=== PATIENT | male | born 1940 | race Caucasian/White ===

== ENCOUNTER 2017-10-09 09:51 | Inpatient (IN) | payer MEDICARE, OTHER, BC ==
[~2017-10-09] VITALS: Ht 175.3 cm; Wt 78.0 kg
[~2017-10-09 09:51] MED LIST: ACET-812 PO; ASPI81TA52 PO; BACL10TA2; CARV3.122 PO; CLOP75TA33 PO; ESOM40CA54 PO; FAMO40TA7 PO; GABA100C PO; ISOS30TA6 PO; NITR0.4T SL; PRAV20TA4 PO; RANO500T3 PO; VALS40TA2 PO; flomax PO
[2017-10-09] MEDS ORDERED: nitroGLYCERIN 1gm ointment UD TP ONE (10:00)
[2017-10-09 10:07] LABS: BASOPHILS % (AUTO) 0.3 % (0-1); EOSINOPHILS # (AUTO) 0.3 X10'3 (0-0.9); EOSINOPHILS % (AUTO) 5.4 % (0-6); HEMOGLOBIN 12.7 g/dl (14.0-17.9); LYMPHOCYTES # (AUTO) 1.4 X10'3 (1.1-4.8); LYMPHOCYTES % (AUTO) 25.4 % (21-51); MEAN CORPUSCULAR HGB CONC 35.4 % (33.0-36.5); MEAN CORPUSCULAR VOLUME 101.9 FL (78-98); MONOCYTES # (AUTO) 0.5 X10'3 (0-0.9); MONOCYTES % (AUTO) 9.5 % (2-12); NEUTROPHILS # (AUTO) 3.2 X10'3 (1.8-7.7); NEUTROPHILS % (AUTO) 59.4 % (42-75); PLATELET COUNT 264 X10'3 (140-440); RED BLOOD COUNT 3.53 X10'6 (4.70-6.10); RED CELL DISTRIBUTION WIDTH 12.6 % (11.5-14.5); WHITE BLOOD COUNT 5.3 X10'3 (4.5-11.0)
[2017-10-09] MEDS ORDERED: ARGI500C9 PO (10:12)
[2017-10-09] MEDS ORDERED: BACL10TA PO (10:12)
[2017-10-09] MEDS ORDERED: VITA150T PO (10:12)
[2017-10-09] MEDS ORDERED: VALS80TA2 PO (10:12)
[2017-10-09] MEDS ORDERED: VITC500T PO (10:12)
[2017-10-09] MEDS ORDERED: FERR-119 PO (10:12)
[2017-10-09] MEDS ORDERED: METO100T7 PO (10:12)
[2017-10-09 10:18] LABS: PARTIAL THROMBOPLASTIN TIME 26 SECONDS (22-32); PROTHROMBIN TIME 10.4 SECONDS (9.0-12.0)
[2017-10-09 10:32] LABS: ALANINE AMINOTRANSFERASE 21 U/L (12-78); ALBUMIN 3.7 G/DL (3.4-5.0); ALBUMIN/GLOBULIN RATIO 0.9 (1.1-1.5); ALKALINE PHOSPHATASE 52 IU/L (46-116); ANION GAP 8 (8-16); ASPARTATE AMINO TRANSFERASE 16 U/L (10-37); BILIRUBIN,TOTAL 0.7 MG/DL (0.1-1.0); BLOOD UREA NITROGEN 22 MG/DL (7-18); BUN/CREATININE RATIO 16.1 (5.4-32.0); CALCIUM 9.2 MG/DL (8.5-10.1); CHLORIDE 107 MMOL/L (99-107); CREATININE 1.37 MG/DL (0.60-1.10); GLUCOSE 104 MG/DL (70-104); MAGNESIUM 2.1 MG/DL (1.5-2.4); POTASSIUM 4.3 MMOL/L (3.5-5.1); SODIUM 142 MMOL/L (135-145); TOTAL PROTEIN 7.6 G/DL (6.4-8.2); eGFR 50 ML/MIN
[2017-10-09] MEDS ORDERED: enoxaparin 100mg/ml syringe SUBCUT ONE ×2 (11:20→12:45)
[2017-10-09] MEDS ORDERED: magnesium 4gm in 100ml NS 100 ML IV PRN (11:35)
[2017-10-09] MEDS ORDERED: magnesium Cl slow-release 64mg tablet PO PRN (11:35)
[2017-10-09] MEDS ORDERED: potassium Cl 20 mEq SR tablet PO PRN ×2 (11:35)
[2017-10-09] MEDS ORDERED: acetaminophen 325mg tablet PO PRN (11:35)
[2017-10-09] MEDS ORDERED: ondansetron/PF 4mg/2ml inj IV PRN (11:35)
[2017-10-09] MEDS ORDERED: MORPHINE 2MG in 2ml NS syringe IV PRN (11:35)
[2017-10-09] MEDS ORDERED: magnesium hydroxide 30ml (MOM) UD suspension PO PRN (11:35)
[2017-10-09] MEDS ORDERED: magnesium 2GM in 50ml NS 50 ML IV PRN (11:35)
[2017-10-09] MEDS ORDERED: mag hydrox/Alum hydrox/simeth 30ml oral suspension PO PRN (11:35)
[2017-10-09] MEDS ORDERED: potassium Cl 40MEQ/NS 500ml 500 ML IV PRN ×2 (11:35)
[2017-10-09] MEDS: famotidine 20mg tablet PO SCH ×2 (12:47→21:45)
[2017-10-09] MEDS ORDERED: isosorbide mononitrate 30mg tab.SR.24H PO SCH (13:20)
[2017-10-09] MEDS: HYDROcodone/acetaminophen 5mg/325mg tablet PO PRN ×2 (14:43→21:19)
[2017-10-09] MEDS ORDERED: nitroGLYCERIN 1gm ointment UD TP SCH (16:00)
[2017-10-09 19:00] VITALS: BP 102/58
[2017-10-09] MEDS: tamsulosin 0.4mg capsule PO SCH (21:19)
[2017-10-09] MEDS: ranolazine 500mg SR tablet (Q12H) PO SCH (21:20)
[2017-10-09] MEDS: enoxaparin 80mg/0.8ml syringe SUBCUT SCH (21:22)
[2017-10-09] MEDS: baclofen 10mg tablet PO SCH (21:23)
[2017-10-09 23:00] VITALS: BP 128/75
[2017-10-09 23:45] VITALS: BP 175/91
[2017-10-09] MEDS ORDERED: nitroGLYCERIN 0.4mg SUBLingual tab SL ONE (23:53)
[2017-10-09] MEDS ORDERED: nitroGLYCERIN 0.4mg SUBLingual tab SL PRN (23:55)
[2017-10-10] VITALS (8 sets, daily range): BP systolic 115–154; BP diastolic 73–87
[2017-10-10 05:55] LABS: BASOPHILS % (AUTO) 0.4 % (0-1); EOSINOPHILS # (AUTO) 0.3 X10'3 (0-0.9); EOSINOPHILS % (AUTO) 5.4 % (0-6); HEMOGLOBIN 11.2 g/dl (14.0-17.9); LYMPHOCYTES # (AUTO) 1.4 X10'3 (1.1-4.8); LYMPHOCYTES % (AUTO) 27.4 % (21-51); MEAN CORPUSCULAR HEMOGLOBIN 35.9 PG (27.0-31.0); MEAN CORPUSCULAR VOLUME 102.6 FL (78-98); MEAN PLATELET VOLUME 7.8 FL (7.4-10.4); MONOCYTES # (AUTO) 0.5 X10'3 (0-0.9); MONOCYTES % (AUTO) 9.8 % (2-12); NEUTROPHILS # (AUTO) 2.9 X10'3 (1.8-7.7); PLATELET COUNT 228 X10'3 (140-440); RED BLOOD COUNT 3.12 X10'6 (4.70-6.10); RED CELL DISTRIBUTION WIDTH 12.4 % (11.5-14.5); WHITE BLOOD COUNT 5.1 X10'3 (4.5-11.0)
[2017-10-10 06:04] LABS: ALBUMIN 3.1 G/DL (3.4-5.0); ANION GAP 7 (8-16); BLOOD UREA NITROGEN 25 MG/DL (7-18); BUN/CREATININE RATIO 20.8 (5.4-32.0); CALCIUM 8.5 MG/DL (8.5-10.1); CHLORIDE 109 MMOL/L (99-107); GLUCOSE 93 MG/DL (70-104); POTASSIUM 4.6 MMOL/L (3.5-5.1); SODIUM 144 MMOL/L (135-145); TOTAL CARBON DIOXIDE 28.2 MMOL/L (24-32); eGFR 59 ML/MIN
[2017-10-10] MEDS: K and/or MAG REPLACEMENT MC SCH (08:00)
[2017-10-10] MEDS: valsartan 80mg tablet PO SCH (08:00)
[2017-10-10] MEDS: vitamin B comp w/Vit. C tab 1 TAB TABLET PO SCH (08:00)
[2017-10-10] MEDS: aspirin 325mg tablet PO SCH (09:29)
[2017-10-10] MEDS: tamsulosin 0.4mg capsule PO SCH ×2 (09:29→20:35)
[2017-10-10] MEDS: ascorbic acid 500mg tablet PO SCH (09:29)
[2017-10-10] MEDS: famotidine 20mg tablet PO SCH ×2 (09:30→20:35)
[2017-10-10] MEDS: baclofen 10mg tablet PO SCH ×2 (09:30→20:35)
[2017-10-10] MEDS: isosorbide mononitrate 30mg tab.SR.24H PO SCH (09:30)
[2017-10-10] MEDS: ranolazine 500mg SR tablet (Q12H) PO SCH ×2 (09:30→20:35)
[2017-10-10] MEDS: metoprolol succinate 25mg (24-HOUR) SR. Tablet PO SCH (09:32)
[2017-10-10] MEDS: enoxaparin 80mg/0.8ml syringe SUBCUT SCH ×2 (09:32→20:38)
[2017-10-10] MEDS: ferrous sulfate 325mg tablet PO SCH (09:32)
[2017-10-10] MEDS: HYDROcodone/acetaminophen 5mg/325mg tablet PO PRN ×2 (11:46→22:52)
[2017-10-10] MEDS ORDERED: morphine 4 MG/ML inj SYRINge IV PRN (19:56)
[2017-10-11 03:00] VITALS: BP 160/77
[2017-10-11 06:00] VITALS: BP 142/73
[2017-10-11 06:08] LABS: BASOPHILS % (AUTO) 0.6 % (0-1); EOSINOPHILS # (AUTO) 0.2 X10'3 (0-0.9); HEMOGLOBIN 12.4 g/dl (14.0-17.9); LYMPHOCYTES # (AUTO) 1.2 X10'3 (1.1-4.8); LYMPHOCYTES % (AUTO) 21.1 % (21-51); MEAN CORPUSCULAR HEMOGLOBIN 36.1 PG (27.0-31.0); MEAN CORPUSCULAR HGB CONC 35.4 % (33.0-36.5); MEAN CORPUSCULAR VOLUME 101.9 FL (78-98); MEAN PLATELET VOLUME 7.6 FL (7.4-10.4); MONOCYTES # (AUTO) 0.5 X10'3 (0-0.9); MONOCYTES % (AUTO) 8.7 % (2-12); NEUTROPHILS # (AUTO) 3.6 X10'3 (1.8-7.7); NEUTROPHILS % (AUTO) 65.6 % (42-75); PLATELET COUNT 251 X10'3 (140-440); RED BLOOD COUNT 3.43 X10'6 (4.70-6.10); RED CELL DISTRIBUTION WIDTH 12.5 % (11.5-14.5); WHITE BLOOD COUNT 5.5 X10'3 (4.5-11.0)
[2017-10-11 06:23] LABS: ALBUMIN 3.4 G/DL (3.4-5.0); ANION GAP 6 (8-16); BLOOD UREA NITROGEN 19 MG/DL (7-18); BUN/CREATININE RATIO 15.6 (5.4-32.0); CALCIUM 8.8 MG/DL (8.5-10.1); CHLORIDE 107 MMOL/L (99-107); CREATININE 1.22 MG/DL (0.60-1.10); GLUCOSE 95 MG/DL (70-104); POTASSIUM 5.1 MMOL/L (3.5-5.1); SODIUM 141 MMOL/L (135-145); TOTAL CARBON DIOXIDE 27.6 MMOL/L (24-32); eGFR 58 ML/MIN
[2017-10-11] MEDS: K and/or MAG REPLACEMENT MC SCH (08:00)
[2017-10-11] MEDS: ferrous sulfate 325mg tablet PO SCH (08:07)
[2017-10-11] MEDS: aspirin 325mg tablet PO SCH (08:08)
[2017-10-11] MEDS: baclofen 10mg tablet PO SCH (08:08)
[2017-10-11] MEDS: isosorbide mononitrate 30mg tab.SR.24H PO SCH (08:08)
[2017-10-11] MEDS: ranolazine 500mg SR tablet (Q12H) PO SCH (08:08)
[2017-10-11] MEDS: ascorbic acid 500mg tablet PO SCH (08:09)
[2017-10-11] MEDS: tamsulosin 0.4mg capsule PO SCH (08:09)
[2017-10-11] MEDS: metoprolol succinate 25mg (24-HOUR) SR. Tablet PO SCH (08:09)
[2017-10-11] MEDS: famotidine 20mg tablet PO SCH (08:09)
[2017-10-11] MEDS: valsartan 80mg tablet PO SCH (08:10)
[2017-10-11] MEDS: enoxaparin 80mg/0.8ml syringe SUBCUT SCH (08:10)
[2017-10-11] MEDS: vitamin B comp w/Vit. C tab 1 TAB TABLET PO SCH (08:10)
[2017-10-11 11:00] VITALS: BP 110/68
[2017-10-11] MEDS ORDERED: ISOS30TA6 PO (13:21)
== END 2017-10-11 15:50 | disposition home or self-care (01) | DRG 303 ==
LOC: ER 09:51 → ED HOLD 11:33 → EDBEDREQ 18:10 → PCU 3S 19:05
PROVIDERS: ADMIT Internal Medicine; ATTEND Internal Medicine
DX: I25.118 Atherosclerotic heart disease of native coronary artery with other forms of angina pectoris (principal); I11.0 Hypertensive heart disease with heart failure; I50.22 Chronic systolic (congestive) heart failure; J44.9 Chronic obstructive pulmonary disease, unspecified; D50.9 Iron deficiency anemia, unspecified; I73.9 Peripheral vascular disease, unspecified; N40.0 Benign prostatic hyperplasia without lower urinary tract symptoms; E78.5 Hyperlipidemia, unspecified; I25.2 Old myocardial infarction; Z95.1 Presence of aortocoronary bypass graft; Z88.2 Allergy status to sulfonamides; Z88.8 Allergy status to other drugs, medicaments and biological substances; Z79.899 Other long term (current) drug therapy; Z86.73 Personal history of transient ischemic attack (TIA), and cerebral infarction without residual deficits; Z87.891 Personal history of nicotine dependence
CPT/HCPCS: 36415; 71045; 80048; 80053; 83735; 83880; 84484; 85025; 85610; 85730; 87070; 93005; 93306; 99285; J1650; J2270; J2274; J2405

== ENCOUNTER 2017-12-09 10:11 | Inpatient (IN) | payer MEDICARE, BC, OTHER ==
[~2017-12-09] VITALS: Ht 175.3 cm; Wt 79.5 kg
[~2017-12-09 10:11] MED LIST changes: -ACET-812 PO; +ARGI500C9 PO; -ASPI81TA52 PO; +BACL10TA PO; -BACL10TA2; -CARV3.122 PO; -CLOP75TA33 PO; -ESOM40CA54 PO; +FERR-119 PO; -GABA100C PO; +METO100T7 PO; -PRAV20TA4 PO; -VALS40TA2 PO; +VALS80TA2 PO; +VITA150T PO; +VITC500T PO
[2017-12-09] MEDS ORDERED: aspirin 81mg tab.chew PO ONE (10:50)
[2017-12-09 10:55] LABS: BASOPHILS % (AUTO) 0.3 % (0-1); EOSINOPHILS # (AUTO) 0.2 X10'3 (0-0.9); HEMATOCRIT 35.9 % (42.0-52.0); HEMOGLOBIN 12.4 g/dl (14.0-17.9); LYMPHOCYTES # (AUTO) 0.8 X10'3 (1.1-4.8); LYMPHOCYTES % (AUTO) 10.9 % (21-51); MEAN CORPUSCULAR HEMOGLOBIN 36.2 PG (27.0-31.0); MEAN CORPUSCULAR HGB CONC 34.5 % (33.0-36.5); MEAN PLATELET VOLUME 7.5 FL (7.4-10.4); MONOCYTES # (AUTO) 0.5 X10'3 (0-0.9); MONOCYTES % (AUTO) 6.2 % (2-12); NEUTROPHILS # (AUTO) 6.2 X10'3 (1.8-7.7); NEUTROPHILS % (AUTO) 79.6 % (42-75); PLATELET COUNT 199 X10'3 (140-440); RED BLOOD COUNT 3.42 X10'6 (4.70-6.10); RED CELL DISTRIBUTION WIDTH 13.2 % (11.5-14.5); WHITE BLOOD COUNT 7.7 X10'3 (4.5-11.0)
[2017-12-09 11:05] LABS: PARTIAL THROMBOPLASTIN TIME 24 SECONDS (22-32); PROTHROMBIN TIME 10.7 SECONDS (9.0-12.0)
[2017-12-09] MEDS ORDERED: CHOL100046 PO (11:09)
[2017-12-09] MEDS ORDERED: MAGN400C PO (11:09)
[2017-12-09] MEDS ORDERED: [UNRECOGNIZED DRUG - CODE] PO (11:09)
[2017-12-09] MEDS ORDERED: EVOL140S SQ (11:09)
[2017-12-09 11:10] LABS: ALANINE AMINOTRANSFERASE 15 U/L (12-78); ALBUMIN 3.5 G/DL (3.4-5.0); ALBUMIN/GLOBULIN RATIO 1.1 (1.1-1.5); ALKALINE PHOSPHATASE 46 IU/L (46-116); ANION GAP 7 (8-16); ASPARTATE AMINO TRANSFERASE 12 U/L (10-37); BILIRUBIN,TOTAL 1.2 MG/DL (0.1-1.0); BLOOD UREA NITROGEN 19 MG/DL (7-18); BUN/CREATININE RATIO 15.7 (5.4-32.0); CALCIUM 8.5 MG/DL (8.5-10.1); CHLORIDE 105 MMOL/L (99-107); CREATININE 1.21 MG/DL (0.60-1.10); GLUCOSE 107 MG/DL (70-104); POTASSIUM 4.2 MMOL/L (3.5-5.1); SODIUM 140 MMOL/L (135-145); TOTAL CARBON DIOXIDE 27.7 MMOL/L (24-32); TOTAL PROTEIN 6.8 G/DL (6.4-8.2); eGFR 58 ML/MIN
[2017-12-09] MEDS ORDERED: nitroGLYCERIN 0.4mg SUBLingual tab SL PRN ×2 (12:45→13:05)
[2017-12-09] MEDS ORDERED: magnesium hydroxide 30ml (MOM) UD suspension PO PRN (13:00)
[2017-12-09] MEDS ORDERED: thiamine inj. 100 MG in normal saline 100ml IV soln 100 ML IV ONE (13:00)
[2017-12-09] MEDS ORDERED: LORazepam 1 MG tablet PO PRN (13:00)
[2017-12-09] MEDS ORDERED: acetaminophen 325mg tablet PO PRN (13:00)
[2017-12-09] MEDS ORDERED: ondansetron/PF 4mg/2ml inj IV PRN (13:00)
[2017-12-09] MEDS ORDERED: mag hydrox/Alum hydrox/simeth 30ml oral suspension PO PRN (13:00)
[2017-12-09 13:05] LABS: CLARITY,URINE SLIGHTLY CLOUDY (Clear); COLOR,URINE AMBER (Yellow); GLUCOSE, URINE NEGATIVE (Neg); KETONES,URINE TRACE mg/dl (Neg); LEUKOCYTE ESTERASE ,URINE NEGATIVE (Neg); NITRITES, URINE NEGATIVE (Neg); OCCULT BLOOD,URINE NEGATIVE (Neg); PH,URINE 6.5 (4.8-8.0); PROTEIN,URINE 30 mg/dl (Neg)
[2017-12-09] MEDS ORDERED: regadenoson 0.4mg/5ml syringe IV ONE (13:05)
[2017-12-09] MEDS ORDERED: metoprolol tartrate 1mg/ml inj IV PRN (13:05)
[2017-12-09] MEDS ORDERED: CAFFEINE CITRATE 60 MG/3 ML injection vial IV PRN (13:05)
[2017-12-09 13:18] LABS: UA COLLECTION TYPE URINAL
[2017-12-09 13:28] LABS: WBC,URINE 0-4 /HPF (0-4)
[2017-12-09 13:29] LABS: BACTERIA,URINE NONE SEEN /HPF (Neg); HYALINE CASTS 0-3 /LPF (NEGATIVE); MUCUS STRANDS MODERATE /LPF (Neg); RBC,URINE 0-2 /HPF (0-2); SQUAMOUS EPITHELIAL CELL,UR FEW /LPF (FEW)
[2017-12-09] MEDS: baclofen 10mg tablet PO SCH (19:41)
[2017-12-09] MEDS: tamsulosin 0.4mg capsule PO SCH (19:41)
[2017-12-09] MEDS: ranolazine 500mg SR tablet (Q12H) PO SCH (19:42)
[2017-12-09 20:00] VITALS: BP 90/49
[2017-12-10] VITALS (13 sets, daily range): BP systolic 113–145; BP diastolic 64–88
[2017-12-10] MEDS: nitroGLYCERIN 0.4mg SUBLingual tab SL SCH ×2 (03:27→03:35)
[2017-12-10 05:43] LABS: BASOPHILS % (AUTO) 0.2 % (0-1); EOSINOPHILS # (AUTO) 0.2 X10'3 (0-0.9); HEMATOCRIT 32.1 % (42.0-52.0); HEMOGLOBIN 11.3 g/dl (14.0-17.9); LYMPHOCYTES % (AUTO) 17.3 % (21-51); MEAN CORPUSCULAR HEMOGLOBIN 36.4 PG (27.0-31.0); MEAN CORPUSCULAR HGB CONC 35.2 % (33.0-36.5); MEAN CORPUSCULAR VOLUME 103.5 FL (78-98); MEAN PLATELET VOLUME 8.1 FL (7.4-10.4); MONOCYTES # (AUTO) 0.6 X10'3 (0-0.9); MONOCYTES % (AUTO) 9.4 % (2-12); NEUTROPHILS # (AUTO) 4.1 X10'3 (1.8-7.7); NEUTROPHILS % (AUTO) 69.1 % (42-75); PLATELET COUNT 183 X10'3 (140-440); RED CELL DISTRIBUTION WIDTH 13.3 % (11.5-14.5); WHITE BLOOD COUNT 5.9 X10'3 (4.5-11.0)
[2017-12-10 05:56] LABS: PROTHROMBIN TIME 10.7 SECONDS (9.0-12.0)
[2017-12-10 06:09] LABS: ALANINE AMINOTRANSFERASE 15 U/L (12-78); ALBUMIN/GLOBULIN RATIO 1.1 (1.1-1.5); ALKALINE PHOSPHATASE 45 IU/L (46-116); AMYLASE 36 U/L (25-115); ANION GAP 7 (8-16); ASPARTATE AMINO TRANSFERASE 10 U/L (10-37); BILIRUBIN,TOTAL 0.9 MG/DL (0.1-1.0); BLOOD UREA NITROGEN 22 MG/DL (7-18); BUN/CREATININE RATIO 17.5 (5.4-32.0); CALCIUM 8.5 MG/DL (8.5-10.1); CHLORIDE 107 MMOL/L (99-107); CREATININE 1.26 MG/DL (0.60-1.10); GLUCOSE 102 MG/DL (70-104); LIPASE 168 U/L (73-393); MAGNESIUM 1.9 MG/DL (1.5-2.4); PHOSPHORUS 3.1 MG/DL (2.3-4.5); POTASSIUM 4.3 MMOL/L (3.5-5.1); SODIUM 141 MMOL/L (135-145); TOTAL PROTEIN 5.8 G/DL (6.4-8.2); eGFR 55 ML/MIN
[2017-12-10] MEDS ORDERED: metoprolol succinate 25mg (24-HOUR) SR. Tablet PO SCH (08:00)
[2017-12-10] MEDS ORDERED: magnesium oxide 400mg tablet PO SCH (08:00)
[2017-12-10] MEDS ORDERED: vitamin B comp w/Vit. C tab 1 TAB TABLET PO SCH (08:00)
[2017-12-10] MEDS ORDERED: famotidine 20mg tablet PO SCH (08:00)
[2017-12-10] MEDS ORDERED: isosorbide mononitrate 30mg tab.SR.24H PO SCH (08:00)
[2017-12-10] MEDS ORDERED: folic acid inj. 2 MG, thiamine inj. 100 MG, MVI, adult No.4 with vit. K 10 ML in dextro... IV SCH ×4 (08:00)
[2017-12-10] MEDS ORDERED: valsartan 80mg tablet PO SCH (08:00)
[2017-12-10] MEDS ORDERED: VITAMIN A 10000 UNIT PO SCH (08:00)
[2017-12-10] MEDS ORDERED: ferrous sulfate 325mg tablet PO SCH (08:00)
[2017-12-10] MEDS ORDERED: vitamin D (cholecalciferol) 1,000 unit tablet PO SCH (08:00)
[2017-12-10] MEDS ORDERED: ascorbic acid 500mg tablet PO SCH (08:00)
[2017-12-10] MEDS ORDERED: enoxaparin 40mg/0.4ml syringe SQ SCH (08:00)
[2017-12-10] MEDS: baclofen 10mg tablet PO SCH (08:15)
[2017-12-10] MEDS: tamsulosin 0.4mg capsule PO SCH (08:15)
[2017-12-10] MEDS: ranolazine 500mg SR tablet (Q12H) PO SCH (08:15)
[2017-12-10] MEDS ORDERED: regadenoson 0.4mg/5ml syringe IV ONE (09:01)
[2017-12-10] MEDS ORDERED: CAFFEINE CITRATE 60 MG/3 ML injection vial IV ONE (09:01)
[2017-12-10] MEDS ORDERED: ADV50100 (10:45)
[2017-12-10] MEDS ORDERED: thiamine 100mg tablet PO SCH (11:44)
[2017-12-10] MEDS ORDERED: multivitamins, therapeutics tablet PO SCH (11:44)
[2017-12-10] MEDS ORDERED: folic acid 1mg tablet PO SCH (11:44)
[2017-12-19] MEDS ORDERED: EVOLOCUMAB 140 MG SQ SCH (08:00)
== END 2017-12-10 16:30 | disposition home or self-care (01) | DRG 313 ==
LOC: ER 10:12 → ED HOLD 12:57 → SUR 3N 17:34
PROVIDERS: ADMIT Internal Medicine; ATTEND Internal Medicine
PROC: 4A02XM4 Measurement of Cardiac Total Activity, External Approach (ICD-10-PCS; principal; 2017-12-10)
PROC: 3E073KZ Introduction of Other Diagnostic Substance into Coronary Artery, Percutaneous Approach (ICD-10-PCS; 2017-12-10)
DX: R07.9 Chest pain, unspecified (principal); I24.9 Acute ischemic heart disease, unspecified; D64.9 Anemia, unspecified; I35.0 Nonrheumatic aortic (valve) stenosis; J44.9 Chronic obstructive pulmonary disease, unspecified; I25.10 Atherosclerotic heart disease of native coronary artery without angina pectoris; I12.9 Hypertensive chronic kidney disease with stage 1 through stage 4 chronic kidney disease, or unspecified chronic kidney disease; E78.5 Hyperlipidemia, unspecified; R00.1 Bradycardia, unspecified; N40.0 Benign prostatic hyperplasia without lower urinary tract symptoms; N18.9 Chronic kidney disease, unspecified; I73.9 Peripheral vascular disease, unspecified; Z88.2 Allergy status to sulfonamides; Z88.8 Allergy status to other drugs, medicaments and biological substances; Z91.041 Radiographic dye allergy status; I25.2 Old myocardial infarction; Z82.49 Family history of ischemic heart disease and other diseases of the circulatory system; Z86.73 Personal history of transient ischemic attack (TIA), and cerebral infarction without residual deficits; Z95.1 Presence of aortocoronary bypass graft; Z95.5 Presence of coronary angioplasty implant and graft; Z87.11 Personal history of peptic ulcer disease
CPT/HCPCS: 36415; 71045; 78451; 80053; 81001; 82150; 82948; 83690; 83735; 84100; 84439; 84443; 84484; 85025; 85610; 85730; 87070; 93005; 93017; 99285; A9500; J3411; J3490; J7030; J7060

== ENCOUNTER 2018-05-09 19:43 | Emergency (ER) | payer MEDICARE, BC, OTHER ==
[~2018-05-09] VITALS: Ht 175.3 cm; Wt 78.2 kg
[~2018-05-09 19:43] MED LIST changes: +ADV50100; -ARGI500C9 PO; +CHOL100046 PO; +EVOL140S SQ; +MAGN400C PO; +[UNRECOGNIZED DRUG - CODE] PO
[2018-05-09 20:33] LABS: BASOPHILS % (AUTO) 0.2 % (0-1); EOSINOPHILS # (AUTO) 0.3 X10'3 (0-0.9); EOSINOPHILS % (AUTO) 5.5 % (0-6); HEMATOCRIT 32.6 % (42.0-52.0); HEMOGLOBIN 11.1 g/dl (14.0-17.9); LYMPHOCYTES # (AUTO) 0.9 X10'3 (1.1-4.8); LYMPHOCYTES % (AUTO) 18.9 % (21-51); MEAN CORPUSCULAR HEMOGLOBIN 35.2 PG (27.0-31.0); MEAN CORPUSCULAR VOLUME 103.3 FL (78-98); MEAN PLATELET VOLUME 7.7 FL (7.4-10.4); MONOCYTES # (AUTO) 0.4 X10'3 (0-0.9); MONOCYTES % (AUTO) 8.1 % (2-12); NEUTROPHILS # (AUTO) 3.3 X10'3 (1.8-7.7); NEUTROPHILS % (AUTO) 67.3 % (42-75); PLATELET COUNT 241 X10'3 (140-440); RED BLOOD COUNT 3.16 X10'6 (4.70-6.10); RED CELL DISTRIBUTION WIDTH 12.5 % (11.5-14.5); WHITE BLOOD COUNT 4.9 X10'3 (4.5-11.0)
[2018-05-09 20:47] LABS: PARTIAL THROMBOPLASTIN TIME 27 SECONDS (22-32); PROTHROMBIN TIME 10.2 SECONDS (9.0-12.0)
[2018-05-09 20:48] LABS: ALANINE AMINOTRANSFERASE 14 U/L (12-78); ALKALINE PHOSPHATASE 43 IU/L (46-116); ANION GAP 9 (8-16); ASPARTATE AMINO TRANSFERASE 12 U/L (10-37); BILIRUBIN,TOTAL 0.6 MG/DL (0.1-1.0); BLOOD UREA NITROGEN 13 MG/DL (7-18); BUN/CREATININE RATIO 12.9 (5.4-32.0); CALCIUM 7.9 MG/DL (8.5-10.1); CHLORIDE 108 MMOL/L (99-107); CREATININE 1.01 MG/DL (0.60-1.10); GLUCOSE 97 MG/DL (70-104); POTASSIUM 4.1 MMOL/L (3.5-5.1); SODIUM 142 MMOL/L (135-145); TOTAL CARBON DIOXIDE 25.5 MMOL/L (24-32); TOTAL PROTEIN 6.1 G/DL (6.4-8.2); eGFR 72 ML/MIN
[2018-05-09 21:43] VITALS: BP 126/67
== END 2018-05-09 21:47 | disposition home or self-care (01) ==
LOC: ER 19:44
DX: R53.1 Weakness (principal); R11.0 Nausea; I25.10 Atherosclerotic heart disease of native coronary artery without angina pectoris; I10 Essential (primary) hypertension; I25.2 Old myocardial infarction; J44.9 Chronic obstructive pulmonary disease, unspecified; Z86.73 Personal history of transient ischemic attack (TIA), and cerebral infarction without residual deficits; Z98.61 Coronary angioplasty status; Z95.1 Presence of aortocoronary bypass graft; Z98.890 Other specified postprocedural states; Z87.891 Personal history of nicotine dependence; Z88.2 Allergy status to sulfonamides; Z88.6 Allergy status to analgesic agent; Z88.8 Allergy status to other drugs, medicaments and biological substances; Z91.041 Radiographic dye allergy status; Z79.899 Other long term (current) drug therapy
CPT/HCPCS: 36415; 71045; 80053; 84484; 85025; 85610; 85730; 93005; 99285

== ENCOUNTER 2018-07-04 00:59 | Inpatient (IN) | payer MEDICARE, BC, OTHER ==
[~2018-07-04] VITALS: Ht 175.3 cm; Wt 79.5 kg
[2018-07-04 01:32] LABS: PARTIAL THROMBOPLASTIN TIME 28 SECONDS (22-32); PROTHROMBIN TIME 10.2 SECONDS (9.0-12.0)
[2018-07-04 01:35] LABS: ALANINE AMINOTRANSFERASE 15 U/L (12-78); ALBUMIN 3.7 G/DL (3.4-5.0); ALBUMIN/GLOBULIN RATIO 1.1 (1.1-1.5); ALKALINE PHOSPHATASE 61 IU/L (46-116); ANION GAP 11 (8-16); ASPARTATE AMINO TRANSFERASE 15 U/L (10-37); BILIRUBIN,TOTAL 0.9 MG/DL (0.1-1.0); BLOOD UREA NITROGEN 21 MG/DL (7-18); BUN/CREATININE RATIO 17.5 (5.4-32.0); CALCIUM 8.8 MG/DL (8.5-10.1); CHLORIDE 105 MMOL/L (99-107); GLUCOSE 121 MG/DL (70-104); POTASSIUM 4.1 MMOL/L (3.5-5.1); SODIUM 141 MMOL/L (135-145); TOTAL CARBON DIOXIDE 25.5 MMOL/L (24-32); eGFR 59 ML/MIN
[2018-07-04 01:38] LABS: BASOPHILS % (AUTO) 0.7 % (0-1); EOSINOPHILS # (AUTO) 0.2 X10'3 (0-0.9); EOSINOPHILS % (AUTO) 3.5 % (0-6); HEMATOCRIT 37.1 % (42.0-52.0); HEMOGLOBIN 12.8 g/dl (14.0-17.9); LYMPHOCYTES # (AUTO) 1.4 X10'3 (1.1-4.8); LYMPHOCYTES % (AUTO) 24.3 % (21-51); MEAN CORPUSCULAR HEMOGLOBIN 35.4 PG (27.0-31.0); MEAN CORPUSCULAR HGB CONC 34.4 % (33.0-36.5); MEAN CORPUSCULAR VOLUME 102.8 FL (78-98); MEAN PLATELET VOLUME 8.1 FL (7.4-10.4); MONOCYTES # (AUTO) 0.4 X10'3 (0-0.9); MONOCYTES % (AUTO) 6.7 % (2-12); NEUTROPHILS # (AUTO) 3.6 X10'3 (1.8-7.7); NEUTROPHILS % (AUTO) 64.8 % (42-75); PLATELET COUNT 252 X10'3 (140-440); RED BLOOD COUNT 3.61 X10'6 (4.70-6.10); RED CELL DISTRIBUTION WIDTH 13.2 % (11.5-14.5); WHITE BLOOD COUNT 5.6 X10'3 (4.5-11.0)
[2018-07-04] MEDS ORDERED: ondansetron/PF 4mg/2ml inj IV PRN (02:30)
[2018-07-04] MEDS ORDERED: mag hydrox/Alum hydrox/simeth 30ml oral suspension PO PRN (02:30)
[2018-07-04] MEDS ORDERED: magnesium hydroxide 30ml (MOM) UD suspension PO PRN (02:30)
[2018-07-04] MEDS ORDERED: baclofen 10mg tablet PO PRN (02:35)
[2018-07-04] MEDS: acetaminophen 325mg tablet PO PRN ×3 (02:52→19:39)
[2018-07-04] MEDS: ACAMPROSATE 333 MG PO SCH ×3 (08:00→17:19)
[2018-07-04] MEDS: metoprolol succinate 25mg (24-HOUR) SR. Tablet PO SCH ×2 (08:00→10:25)
[2018-07-04] MEDS ORDERED: acamprosate DR 333mg Tablet PO SCH (08:00)
[2018-07-04] MEDS ORDERED: ranolazine 500mg SR tablet (Q12H) PO SCH (08:00)
[2018-07-04 09:50] VITALS: BP 164/86
[2018-07-04] MEDS ORDERED: magnesium Cl slow-release 64mg tablet PO PRN (10:05)
[2018-07-04] MEDS ORDERED: potassium Cl 20 mEq SR tablet PO PRN ×2 (10:05)
[2018-07-04] MEDS ORDERED: magnesium 4gm in 100ml NS 100 ML IV PRN (10:05)
[2018-07-04] MEDS ORDERED: potassium Cl 40MEQ/NS 500ml 500 ML IV PRN ×2 (10:05)
[2018-07-04] MEDS ORDERED: aminophylline 250mg/10ml inj. IV PRN (10:10)
[2018-07-04] MEDS ORDERED: regadenoson 0.4mg/5ml syringe IV ONE (10:10)
[2018-07-04] MEDS ORDERED: nitroGLYCERIN 0.4mg SUBLingual tab SL PRN (10:10)
[2018-07-04] MEDS ORDERED: metoprolol tartrate 1mg/ml inj IV PRN (10:10)
[2018-07-04] MEDS: nitroGLYCERIN 0.4mg SUBLingual tab SL PRN ×4 (10:21→12:10)
[2018-07-04] MEDS: famotidine 20mg tablet PO SCH (10:25)
[2018-07-04] MEDS: ferrous sulfate 325mg tablet PO SCH (10:25)
[2018-07-04] MEDS: tamsulosin 0.4mg capsule PO SCH ×2 (10:26→19:38)
[2018-07-04] MEDS: folic acid/vitamin B complex w/vitamin C 0.8mg tablet PO SCH (10:26)
[2018-07-04] MEDS: vitamin D (cholecalciferol) 1,000 unit tablet PO SCH (10:28)
[2018-07-04] MEDS: heparin, porcine 5000 units/ml vial SQ SCH ×2 (10:28→19:39)
[2018-07-04] MEDS: losartan 50mg tablet PO SCH (10:29)
[2018-07-04] MEDS: ascorbic acid 500mg tablet PO SCH (10:29)
[2018-07-04] MEDS: isosorbide mononitrate 30mg tab.SR.24H PO SCH (10:30)
[2018-07-04] MEDS: magnesium oxide 400mg tablet PO SCH (10:56)
[2018-07-04 11:00] VITALS: BP 157/83
[2018-07-04] MEDS ORDERED: haloperidol 5mg tablet PO PRN (12:50)
[2018-07-04] MEDS ORDERED: haloperidol lactate 5mg/ml inj IM PRN (12:50)
[2018-07-04] MEDS ORDERED: dextrose 50%-water 50ml dispensing syringe IV PRN (12:50)
[2018-07-04] MEDS ORDERED: LORazepam 2 mg/ml vial IV PRN (12:50)
[2018-07-04] MEDS ORDERED: thiamine 100mg/ml 2ml inj. IV ONE (12:50)
[2018-07-04] MEDS ORDERED: HYDROcodone/acetaminophen 5mg/325mg tablet PO PRN (13:20)
[2018-07-04] MEDS ORDERED: HYDROcodone/acetaminophen 10/325mg tab PO PRN (13:20)
[2018-07-04] MEDS ORDERED: thiamine inj. 100 MG in normal saline 100ml IV soln 99 ML IV ONE (13:40)
[2018-07-04] MEDS ORDERED: METO25TA6 PO (14:13)
[2018-07-04 15:00] VITALS: BP 134/68
[2018-07-04] MEDS: nitroGLYCERIN 0.2mg/hour patch TD SCH (17:18)
[2018-07-04 19:00] VITALS: BP 133/76
[2018-07-04] MEDS: ranolazine 500mg SR tablet (Q12H) PO SCH (19:38)
[2018-07-04] MEDS: metoprolol tartrate 25mg tablet PO SCH (19:39)
[2018-07-04 23:00] VITALS: BP 118/68
[2018-07-05] VITALS (14 sets, daily range): BP systolic 125–164; BP diastolic 60–89
[2018-07-05 06:35] LABS: ALANINE AMINOTRANSFERASE 15 U/L (12-78); ALBUMIN 3.1 G/DL (3.4-5.0); ALBUMIN/GLOBULIN RATIO 1.1 (1.1-1.5); ALKALINE PHOSPHATASE 44 IU/L (46-116); ANION GAP 12 (8-16); ASPARTATE AMINO TRANSFERASE 19 U/L (10-37); BILIRUBIN,TOTAL 0.9 MG/DL (0.1-1.0); BLOOD UREA NITROGEN 15 MG/DL (7-18); BUN/CREATININE RATIO 15.3 (5.4-32.0); CALCIUM 8.7 MG/DL (8.5-10.1); CHLORIDE 105 MMOL/L (99-107); CREATININE 0.98 MG/DL (0.60-1.10); GLUCOSE 92 MG/DL (70-104); PHOSPHORUS 3.5 MG/DL (2.3-4.5); POTASSIUM 4.1 MMOL/L (3.5-5.1); SODIUM 140 MMOL/L (135-145); eGFR 74 ML/MIN
[2018-07-05 07:10] LABS: BASOPHILS % (AUTO) 0.3 % (0-1); EOSINOPHILS # (AUTO) 0.2 X10'3 (0-0.9); HEMOGLOBIN 11.8 g/dl (14.0-17.9); LYMPHOCYTES # (AUTO) 1.1 X10'3 (1.1-4.8); LYMPHOCYTES % (AUTO) 21.2 % (21-51); MEAN CORPUSCULAR HEMOGLOBIN 35.7 PG (27.0-31.0); MEAN CORPUSCULAR HGB CONC 34.7 % (33.0-36.5); MEAN PLATELET VOLUME 8.1 FL (7.4-10.4); MONOCYTES # (AUTO) 0.4 X10'3 (0-0.9); MONOCYTES % (AUTO) 8.5 % (2-12); NEUTROPHILS # (AUTO) 3.4 X10'3 (1.8-7.7); PLATELET COUNT 227 X10'3 (140-440); RED CELL DISTRIBUTION WIDTH 13.7 % (11.5-14.5); WHITE BLOOD COUNT 5.2 X10'3 (4.5-11.0)
[2018-07-05] MEDS: metoprolol tartrate 25mg tablet PO SCH (08:00)
[2018-07-05] MEDS ORDERED: multivitamins, therapeutics tablet PO SCH (08:00)
[2018-07-05] MEDS ORDERED: thiamine 100mg tablet PO SCH (08:00)
[2018-07-05] MEDS ORDERED: folic acid 1mg tablet PO SCH (08:00)
[2018-07-05] MEDS ORDERED: aminophylline inj. 10 ML IV ONE (08:52)
[2018-07-05] MEDS ORDERED: regadenoson 0.4mg/5ml syringe IV ONE ×2 (08:52→09:10)
[2018-07-05] MEDS: losartan 50mg tablet PO SCH (10:57)
[2018-07-05] MEDS: ferrous sulfate 325mg tablet PO SCH (10:57)
[2018-07-05] MEDS: tamsulosin 0.4mg capsule PO SCH (10:58)
[2018-07-05] MEDS: isosorbide mononitrate 30mg tab.SR.24H PO SCH (11:01)
[2018-07-05] MEDS: magnesium oxide 400mg tablet PO SCH (11:02)
[2018-07-05] MEDS: vitamin D (cholecalciferol) 1,000 unit tablet PO SCH (11:03)
[2018-07-05] MEDS: folic acid/vitamin B complex w/vitamin C 0.8mg tablet PO SCH (11:03)
[2018-07-05] MEDS: famotidine 20mg tablet PO SCH (11:04)
[2018-07-05] MEDS: ACAMPROSATE 333 MG PO SCH ×2 (11:05→13:49)
[2018-07-05] MEDS: ranolazine 500mg SR tablet (Q12H) PO SCH (11:06)
[2018-07-05] MEDS: ascorbic acid 500mg tablet PO SCH (11:07)
[2018-07-05] MEDS: nitroGLYCERIN 0.2mg/hour patch TD SCH (11:08)
[2018-07-05] MEDS: heparin, porcine 5000 units/ml vial SQ SCH (11:10)
[2018-07-05] MEDS ORDERED: THI100T PO (14:54)
[2018-07-05] MEDS ORDERED: MULT-1179 PO (14:54)
[2018-07-05] MEDS ORDERED: FOLI1TAB16 PO (14:54)
[2018-07-05] MEDS ORDERED: PANT40TA4 PO (14:58)
[2018-07-06] MEDS ORDERED: LORazepam 2 mg/ml vial IV PRN (12:50)
[2018-07-06] MEDS ORDERED: LORazepam 1 MG tablet PO PRN (12:50)
[2018-07-08] MEDS ORDERED: LORazepam 1 MG tablet PO PRN (12:50)
[2018-07-08] MEDS ORDERED: LORazepam 2 mg/ml vial IV PRN (12:50)
== END 2018-07-05 16:00 | disposition home or self-care (01) | DRG 392 ==
LOC: ER 01:00 → ED HOLD 02:28 → PCU 3S 09:53
PROVIDERS: ADMIT Internal Medicine; ATTEND Family Medicine
PROC: 4A02XM4 Measurement of Cardiac Total Activity, External Approach (ICD-10-PCS; principal; 2018-07-05)
PROC: 3E033HZ Introduction of Radioactive Substance into Peripheral Vein, Percutaneous Approach (ICD-10-PCS; 2018-07-05)
DX: K21.9 Gastro-esophageal reflux disease without esophagitis (principal); I10 Essential (primary) hypertension; J44.9 Chronic obstructive pulmonary disease, unspecified; I25.10 Atherosclerotic heart disease of native coronary artery without angina pectoris; K29.20 Alcoholic gastritis without bleeding; I35.0 Nonrheumatic aortic (valve) stenosis; N40.0 Benign prostatic hyperplasia without lower urinary tract symptoms; I25.2 Old myocardial infarction; Z95.1 Presence of aortocoronary bypass graft; Z79.899 Other long term (current) drug therapy; Z88.2 Allergy status to sulfonamides; Z88.8 Allergy status to other drugs, medicaments and biological substances; Z91.041 Radiographic dye allergy status; Z88.6 Allergy status to analgesic agent; Z87.891 Personal history of nicotine dependence; Z86.73 Personal history of transient ischemic attack (TIA), and cerebral infarction without residual deficits
CPT/HCPCS: 36415; 71045; 78452; 80053; 82948; 83735; 84100; 84484; 85025; 85610; 85730; 93005; 93017; 93306; 99285; A9500; G0378; J0280; J1644; J2405; J3411; J7030

== ENCOUNTER 2018-08-05 07:52 | Emergency (ER) | payer MEDICARE, BC, OTHER ==
[~2018-08-05] VITALS: Ht 175.3 cm; Wt 77.0 kg
[~2018-08-05 07:52] MED LIST changes: -FAMO40TA7 PO; +FOLI1TAB16 PO; -METO100T7 PO; +METO25TA6 PO; +MULT-1179 PO; +PANT40TA4 PO; +THI100T PO
[2018-08-05 08:37] LABS: BASOPHILS % (AUTO) 0.4 % (0-1); EOSINOPHILS # (AUTO) 0.5 X10'3 (0-0.9); EOSINOPHILS % (AUTO) 6.5 % (0-6); HEMATOCRIT 38.6 % (42.0-52.0); HEMOGLOBIN 12.9 g/dl (14.0-17.9); LYMPHOCYTES # (AUTO) 1.4 X10'3 (1.1-4.8); LYMPHOCYTES % (AUTO) 20.3 % (21-51); MEAN CORPUSCULAR HGB CONC 33.5 % (33.0-36.5); MEAN CORPUSCULAR VOLUME 101.5 FL (78-98); MEAN PLATELET VOLUME 7.5 FL (7.4-10.4); MONOCYTES # (AUTO) 0.5 X10'3 (0-0.9); MONOCYTES % (AUTO) 7.5 % (2-12); NEUTROPHILS # (AUTO) 4.5 X10'3 (1.8-7.7); NEUTROPHILS % (AUTO) 65.3 % (42-75); PLATELET COUNT 227 X10'3 (140-440); RED CELL DISTRIBUTION WIDTH 12.4 % (11.5-14.5); WHITE BLOOD COUNT 6.9 X10'3 (4.5-11.0)
[2018-08-05 08:48] LABS: PROTHROMBIN TIME 10.1 SECONDS (9.0-12.0)
[2018-08-05 08:53] LABS: ALANINE AMINOTRANSFERASE 16 U/L (12-78); ALBUMIN 3.5 G/DL (3.4-5.0); ALBUMIN/GLOBULIN RATIO 1.1 (1.1-1.5); ALKALINE PHOSPHATASE 53 IU/L (46-116); ANION GAP 11 (8-16); ASPARTATE AMINO TRANSFERASE 13 U/L (10-37); BILIRUBIN,TOTAL 0.8 MG/DL (0.1-1.0); BLOOD UREA NITROGEN 19 MG/DL (7-18); BUN/CREATININE RATIO 20.2 (5.4-32.0); CALCIUM 8.7 MG/DL (8.5-10.1); CHLORIDE 106 MMOL/L (99-107); CREATININE 0.94 MG/DL (0.60-1.10); GLUCOSE 95 MG/DL (70-104); POTASSIUM 3.7 MMOL/L (3.5-5.1); SODIUM 140 MMOL/L (135-145); TOTAL CARBON DIOXIDE 23.1 MMOL/L (24-32); TOTAL PROTEIN 6.7 G/DL (6.4-8.2); eGFR 78 ML/MIN
[2018-08-05] MEDS ORDERED: furosemide 10 MG/1 ML 10ml inj IV ONE (09:05)
[2018-08-05] MEDS ORDERED: furosemide 40mg/4ml inj IV ONE (09:10)
[2018-08-05 10:23] VITALS: BP 141/71
== END 2018-08-05 10:24 | disposition home or self-care (01) ==
LOC: ER 07:53
DX: I20.8 Other forms of angina pectoris (principal); I50.9 Heart failure, unspecified; I11.0 Hypertensive heart disease with heart failure; I25.2 Old myocardial infarction; J44.9 Chronic obstructive pulmonary disease, unspecified; R00.1 Bradycardia, unspecified; Z88.6 Allergy status to analgesic agent; Z88.2 Allergy status to sulfonamides; Z88.8 Allergy status to other drugs, medicaments and biological substances; Z79.899 Other long term (current) drug therapy; Z86.73 Personal history of transient ischemic attack (TIA), and cerebral infarction without residual deficits; Z86.718 Personal history of other venous thrombosis and embolism; Z87.19 Personal history of other diseases of the digestive system; Z98.890 Other specified postprocedural states; Z90.89 Acquired absence of other organs; Z98.61 Coronary angioplasty status; Z95.1 Presence of aortocoronary bypass graft
CPT/HCPCS: 36415; 71045; 80053; 83880; 84484; 85025; 85610; 93005; 96374; 99284; J1940

== ENCOUNTER 2018-10-31 01:33 | Inpatient (IN) | payer MEDICARE, BC, OTHER ==
[~2018-10-31] VITALS: Ht 170.2 cm; Wt 84.0 kg
[2018-10-31 02:00] LABS: BASOPHILS % (AUTO) 0.3 % (0-1); EOSINOPHILS # (AUTO) 0.4 X10'3 (0-0.9); EOSINOPHILS % (AUTO) 6.9 % (0-6); HEMATOCRIT 32.1 % (42.0-52.0); HEMOGLOBIN 11.2 g/dl (14.0-17.9); LYMPHOCYTES # (AUTO) 1.3 X10'3 (1.1-4.8); LYMPHOCYTES % (AUTO) 20.2 % (21-51); MEAN CORPUSCULAR HEMOGLOBIN 34.9 PG (27.0-31.0); MEAN CORPUSCULAR VOLUME 99.9 FL (78-98); MEAN PLATELET VOLUME 7.3 FL (7.4-10.4); MONOCYTES # (AUTO) 0.5 X10'3 (0-0.9); MONOCYTES % (AUTO) 7.6 % (2-12); NEUTROPHILS # (AUTO) 4.3 X10'3 (1.8-7.7); PLATELET COUNT 237 X10'3 (140-440); RED BLOOD COUNT 3.21 X10'6 (4.70-6.10); RED CELL DISTRIBUTION WIDTH 13.5 % (11.5-14.5); WHITE BLOOD COUNT 6.6 X10'3 (4.5-11.0)
[2018-10-31 02:12] LABS: ALANINE AMINOTRANSFERASE 14 U/L (12-78); ALBUMIN 3.6 G/DL (3.4-5.0); ALBUMIN/GLOBULIN RATIO 1.2 (1.1-1.5); ALKALINE PHOSPHATASE 85 IU/L (46-116); ANION GAP 8 (8-16); ASPARTATE AMINO TRANSFERASE 12 U/L (10-37); BILIRUBIN,TOTAL 0.5 MG/DL (0.1-1.0); BLOOD UREA NITROGEN 15 MG/DL (7-18); BUN/CREATININE RATIO 13.6 (5.4-32.0); CALCIUM 8.9 MG/DL (8.5-10.1); CHLORIDE 105 MMOL/L (99-107); GLUCOSE 101 MG/DL (70-104); PARTIAL THROMBOPLASTIN TIME 27 SECONDS (22-32); POTASSIUM 3.5 MMOL/L (3.5-5.1); SODIUM 140 MMOL/L (135-145); TOTAL PROTEIN 6.7 G/DL (6.4-8.2); eGFR 65 ML/MIN
[2018-10-31] MEDS ORDERED: clopidogrel 300mg tablet PO ONE (02:20)
[2018-10-31] MEDS ORDERED: LEVO500C3 PO (03:17)
[2018-10-31] MEDS ORDERED: VITA40TA PO (03:17)
[2018-10-31] MEDS ORDERED: GARL500T4 PO (03:17)
[2018-10-31] MEDS ORDERED: [UNRECOGNIZED DRUG - OTHER] (03:17)
[2018-10-31] MEDS ORDERED: IRON15TA3 PO (03:17)
[2018-10-31] MEDS ORDERED: LACT1CAP65 PO (03:17)
[2018-10-31] MEDS ORDERED: KEN0.1O TP (03:17)
[2018-10-31] MEDS ORDERED: [UNRECOGNIZED DRUG - CODE] PO (03:17)
[2018-10-31] MEDS ORDERED: VITA400T8 PO (03:17)
[2018-10-31] MEDS ORDERED: CHOL-4 PO (03:17)
[2018-10-31] MEDS ORDERED: ISOS20TA6 PO (03:17)
[2018-10-31] MEDS ORDERED: ALPH100C PO (03:17)
[2018-10-31] MEDS ORDERED: [UNRECOGNIZED DRUG - CODE] PO (03:17)
[2018-10-31] MEDS ORDERED: [UNRECOGNIZED DRUG - OTHER] PO (03:17)
[2018-10-31] MEDS ORDERED: METO50TA17 PO (03:17)
[2018-10-31] MEDS ORDERED: UBID100C45 PO (03:17)
[2018-10-31] MEDS ORDERED: RIBO1POW3 PO (03:17)
[2018-10-31] MEDS ORDERED: ANAS1TAB10 PO (03:17)
[2018-10-31] MEDS ORDERED: RESERVATROL (03:17)
[2018-10-31] MEDS ORDERED: [UNRECOGNIZED DRUG - OTHER] (03:18)
[2018-10-31] MEDS ORDERED: acetaminophen 325mg tablet PO PRN ×2 (03:50→17:25)
[2018-10-31] MEDS ORDERED: EVOLOCUMAB SQ SCH (03:50)
[2018-10-31] MEDS ORDERED: magnesium 2GM in 50ml NS 50 ML IV PRN (03:50)
[2018-10-31] MEDS ORDERED: mag hydrox/Alum hydrox/simeth 30ml oral suspension PO PRN (03:50)
[2018-10-31] MEDS ORDERED: magnesium 4gm in 100ml NS 100 ML IV PRN (03:50)
[2018-10-31] MEDS ORDERED: potassium Cl 20 mEq SR tablet PO PRN ×2 (03:50)
[2018-10-31] MEDS ORDERED: magnesium hydroxide 30ml (MOM) UD suspension PO PRN (03:50)
[2018-10-31] MEDS ORDERED: potassium Cl 40MEQ/NS 500ml 500 ML IV PRN ×2 (03:50)
[2018-10-31] MEDS ORDERED: ondansetron/PF 4mg/2ml inj IV PRN (03:50)
--- NOTE | 2018-10-31 03:56 | NUR ---
PT HAS BEEN PAIN FREE SINCE ARRIVING IN THE ER - HE WAS LAST AWAKE SITTING UP USING HIS LAPTOP IN BED. DENIES COMPLAINTS
--- NOTE | 2018-10-31 04:19 | NUR ---
LUANN AT BEDSIDE FOR ADMISSION
[2018-10-31] MEDS: nitroGLYCERIN 0.4mg SUBLingual tab SL PRN ×5 (04:40→09:21)
--- NOTE | 2018-10-31 04:42 | NUR ---
NOT MORE THAN 30 SECONDS AFTER THE HOSPITALIST LEFT THE BEDSIDE THE PT CALLED OUT THAT HE WAS HAVING CHEST PAIN. HE STATED THAT HE HAD HIS PANTS DOWN TO USE THE URINAL AND THEN THE DOCTOR CAME IN. WHEN THE DOCTOR LEFT HE TRIED TO PULL HIS PANTS UP AND THE EXERTION CAUSED HIM TO HAVE CHEST PAIN AGAIN. MD KONG AWARE AND ORDER FOR SL NTG ENTERED AND PT MEDICATED.
[2018-10-31] MEDS ORDERED: acetaminophen 325mg tablet PO ONE (04:50)
--- NOTE | 2018-10-31 05:16 | NUR ---
PT ONLY HAD FIELD START IV AND WAS IN NEED OF LAB DRAW - FIELD START IV WILL NOT DRAW. ELECTED TO START SECOND IV TO GET LAB WORK. PT REPORTS CHEST PAIN RESOLVED WITH 1ST NTG BUT THEN RETURNED WHEN I WAS DOING THE 2ND IV START. PT REQUESTING ANOTHER NTG.
[2018-10-31 05:40] LABS: CHOL/HDL RATIO 5.1 (0.00-4.99); CHOLESTEROL 152 MG/DL (0-200); HDL CHOLESTEROL 30 MG/DL (35-60); LDL CHOLESTEROL 77 MG/DL (50-100); TRIGLYCERIDES 421 MG/DL (20-135)
--- NOTE | 2018-10-31 07:12 | NUR ---
Received pt report from Bryanna OCHOA, awaiting patient's arrival.
[2018-10-31 07:30] VITALS: BP 144/70
[2018-10-31] MEDS ORDERED: [UNRECOGNIZED DRUG - OTHER] PO SCH (07:30)
--- NOTE | 2018-10-31 07:30 | NUR ---
Pt in room 3016A. Pt ambulated to bed. Vital signs obtained and are in stable condition. Pt is denies chest pain at this time. Pt is saline locked and tele monitor is on patient. Call light given to pt and orientated pt to room, will continue to monitor.
[2018-10-31] MEDS ORDERED: VITAMIN A PO SCH (08:00)
[2018-10-31] MEDS: OMEGA-3/DHA/EPA/FISH OIL 1 EACH CAPSULE.DR PO SCH (08:00)
[2018-10-31] MEDS ORDERED: LEVOCARNITINE TARTRATE 500 MG PO SCH (08:00)
[2018-10-31] MEDS ORDERED: non-formulary drug (Ubidecarenone (Co Q-10) 100 MG) PO SCH (08:00)
[2018-10-31] MEDS ORDERED: clopidogrel 75mg tablet PO SCH (08:00)
[2018-10-31] MEDS: K and/or MAG REPLACEMENT MC SCH (08:00)
[2018-10-31] MEDS ORDERED: [UNRECOGNIZED DRUG - OTHER] PO SCH (08:00)
[2018-10-31] MEDS ORDERED: clopidogrel 75mg tablet PO ONE (08:00)
[2018-10-31] MEDS ORDERED: VITAMIN K2 100 MCG PO SCH (08:00)
[2018-10-31] MEDS: vitamin E 400 unit capsule PO SCH (08:16)
[2018-10-31] MEDS: vitamin D (cholecalciferol) 1,000 unit tablet PO SCH ×2 (08:16→20:16)
[2018-10-31] MEDS: vitamin B comp w/Vit. C tab 1 TAB TABLET PO SCH (08:16)
[2018-10-31] MEDS: ascorbic acid 500mg tablet PO SCH (08:16)
[2018-10-31] MEDS: ferrous sulfate 325mg tablet PO SCH (08:17)
[2018-10-31] MEDS: lactobacillus rhamnosus 10,000 MMU CELLS/CAPSULE PO SCH ×2 (08:18→20:16)
[2018-10-31] MEDS: heparin, porcine 5000 units/ml vial SQ SCH ×2 (08:20→17:47)
[2018-10-31] MEDS ORDERED: nitroGLYCERIN 0.4mg/hour patch TD ONE ×2 (09:10→19:40)
--- NOTE | 2018-10-31 09:15 | NUR ---
Pt refused Plavix, Dr. Grant is aware.
[2018-10-31] MEDS: magnesium oxide 400mg tablet PO SCH (09:47)
[2018-10-31] MEDS: pantoprazole 40mg Tablet.DR PO SCH (09:47)
[2018-10-31] MEDS: losartan 50mg tablet PO SCH (09:47)
[2018-10-31] MEDS: isosorbide mononitrate 30mg tab.SR.24H PO SCH (09:47)
[2018-10-31] MEDS: metoprolol tartrate 50mg tablet PO SCH ×2 (09:48→20:00)
[2018-10-31] MEDS: ranolazine 500mg SR tablet (Q12H) PO SCH ×2 (09:51→20:15)
[2018-10-31 11:00] VITALS: BP 135/78
[2018-10-31 15:00] VITALS: BP 130/67
--- NOTE | 2018-10-31 17:24 | NUR ---
Patient in room PCU 3016. I have received report from DON Garcia and had the opportunity to ask questions and assume patient care.
--- NOTE | 2018-10-31 17:36 | NUR ---
Problems reprioritized. Patient report given, questions answered & plan of care reviewed with Noris OCHOA.
--- NOTE | 2018-10-31 17:56 | NUR ---
PAGER ID: [phone] MESSAGE: Patient Gurpreet Dickens in room 3016A is requesting a Nitropatch that was refused earlier today. [facility] Noris [phone]
[2018-10-31 18:00] VITALS: BP 149/75
[2018-10-31] MEDS: tamsulosin 0.4mg capsule PO SCH (20:22)
[2018-10-31] MEDS ORDERED: acamprosate DR 333mg Tablet PO SCH (21:00)
[2018-10-31] MEDS ORDERED: IRON CARBONYL PO SCH (21:00)
[2018-10-31 23:00] VITALS: BP 124/64
[2018-11-01] MEDS: heparin, porcine 5000 units/ml vial SQ SCH ×2 (00:46→09:23)
[2018-11-01 03:00] VITALS: BP 129/85
[2018-11-01 05:37] LABS: BASOPHILS % (AUTO) 0.4 % (0-1); EOSINOPHILS # (AUTO) 0.3 X10'3 (0-0.9); EOSINOPHILS % (AUTO) 5.6 % (0-6); HEMOGLOBIN 10.8 g/dl (14.0-17.9); LYMPHOCYTES # (AUTO) 1.4 X10'3 (1.1-4.8); LYMPHOCYTES % (AUTO) 24.2 % (21-51); MEAN CORPUSCULAR HEMOGLOBIN 34.5 PG (27.0-31.0); MEAN CORPUSCULAR HGB CONC 34.8 g/dL (33.0-36.5); MEAN CORPUSCULAR VOLUME 99.2 FL (78-98); MEAN PLATELET VOLUME 7.9 FL (7.4-10.4); MONOCYTES # (AUTO) 0.5 X10'3 (0-0.9); MONOCYTES % (AUTO) 9.2 % (2-12); NEUTROPHILS # (AUTO) 3.5 X10'3 (1.8-7.7); NEUTROPHILS % (AUTO) 60.6 % (42-75); PLATELET COUNT 205 X10'3 (140-440); RED BLOOD COUNT 3.12 X10'6 (4.70-6.10); RED CELL DISTRIBUTION WIDTH 13.2 % (11.5-14.5); WHITE BLOOD COUNT 5.7 X10'3 (4.5-11.0)
[2018-11-01 05:40] LABS: ALANINE AMINOTRANSFERASE 14 U/L (12-78); ALBUMIN 3.1 G/DL (3.4-5.0); ALBUMIN/GLOBULIN RATIO 1.1 (1.1-1.5); ALKALINE PHOSPHATASE 56 IU/L (46-116); ANION GAP 6 (8-16); ASPARTATE AMINO TRANSFERASE 12 U/L (10-37); BILIRUBIN,TOTAL 0.7 MG/DL (0.1-1.0); BLOOD UREA NITROGEN 19 MG/DL (7-18); CALCIUM 9.1 MG/DL (8.5-10.1); CHLORIDE 107 MMOL/L (99-107); GLUCOSE 95 MG/DL (70-104); MAGNESIUM 1.6 MG/DL (1.5-2.4); POTASSIUM 4.1 MMOL/L (3.5-5.1); SODIUM 140 MMOL/L (135-145); TOTAL CARBON DIOXIDE 26.6 MMOL/L (24-32); TOTAL PROTEIN 5.8 G/DL (6.4-8.2); eGFR 72 ML/MIN
--- NOTE | 2018-11-01 06:05 | NUR ---
Patient in room PCU 3016. I have received report from Noris OCHOA and had the opportunity to ask questions and assume patient care.
--- NOTE | 2018-11-01 06:12 | NUR ---
Problems reprioritized. Patient report given, questions answered & plan of care reviewed with DON Garcia.
[2018-11-01 07:00] VITALS: BP 129/72
[2018-11-01] MEDS: OMEGA-3/DHA/EPA/FISH OIL 1 EACH CAPSULE.DR PO SCH (08:00)
[2018-11-01] MEDS: vitamin E 400 unit capsule PO SCH (08:00)
[2018-11-01] MEDS: metoprolol tartrate 50mg tablet PO SCH (08:00)
[2018-11-01] MEDS: K and/or MAG REPLACEMENT MC SCH (08:00)
[2018-11-01 08:55] VITALS: BP 120/74
[2018-11-01] MEDS: lactobacillus rhamnosus 10,000 MMU CELLS/CAPSULE PO SCH (09:18)
[2018-11-01] MEDS: ranolazine 500mg SR tablet (Q12H) PO SCH (09:18)
[2018-11-01] MEDS: vitamin D (cholecalciferol) 1,000 unit tablet PO SCH (09:18)
[2018-11-01] MEDS: ferrous sulfate 325mg tablet PO SCH (09:18)
[2018-11-01] MEDS: vitamin B comp w/Vit. C tab 1 TAB TABLET PO SCH (09:19)
[2018-11-01] MEDS: isosorbide mononitrate 30mg tab.SR.24H PO SCH (09:19)
[2018-11-01] MEDS: ascorbic acid 500mg tablet PO SCH (09:19)
[2018-11-01] MEDS: losartan 50mg tablet PO SCH (09:20)
[2018-11-01] MEDS: pantoprazole 40mg Tablet.DR PO SCH (09:21)
[2018-11-01] MEDS: tamsulosin 0.4mg capsule PO SCH (09:21)
[2018-11-01] MEDS: magnesium oxide 400mg tablet PO SCH (09:21)
[2018-11-01 11:00] VITALS: BP 114/78
--- NOTE | 2018-11-01 14:00 | NUR ---
Reviewed discharge instructions with pt and answered all questions. No new prescriptions at time of discharge. Pt denied chest pain at time of discharge and vital signs were within normal limits. Pt stated he has a scheduled appointment with Dr. Rachael Gaona November 04, 2018. Tele monitor discontinued and removed IV with canula intact. Pt taken to lobby via wheelchair and left in private vehicle driven by spouse.
--- NOTE | 2018-11-01 15:38 | NUR ---
Pt forgot computer outside repairer special. Spoke to pt and he stated he will be in sometime this evening to pick it up. Permit Technician is in bag and marked with pt sticker and is at nurse's station.
== END 2018-11-01 14:05 | disposition home or self-care (01) | DRG 392 ==
LOC: ER 01:33 → ED HOLD 07:25 → PCU 3S 07:45
PROVIDERS: ADMIT Family Medicine; ATTEND Family Medicine
DX: K21.9 Gastro-esophageal reflux disease without esophagitis (principal); R07.89 Other chest pain; I10 Essential (primary) hypertension; I25.2 Old myocardial infarction; I35.0 Nonrheumatic aortic (valve) stenosis; J44.9 Chronic obstructive pulmonary disease, unspecified; Z95.1 Presence of aortocoronary bypass graft; Z88.2 Allergy status to sulfonamides; Z88.8 Allergy status to other drugs, medicaments and biological substances; Z88.6 Allergy status to analgesic agent; Z91.041 Radiographic dye allergy status; Z79.899 Other long term (current) drug therapy; Z87.891 Personal history of nicotine dependence; Z86.73 Personal history of transient ischemic attack (TIA), and cerebral infarction without residual deficits; Z80.0 Family history of malignant neoplasm of digestive organs
CPT/HCPCS: 36415; 71045; 80053; 80061; 83735; 84484; 85025; 85610; 85730; 87070; 93005; 93306; 99285; G0378; J1644; J2405

== ENCOUNTER 2019-02-03 16:06 | Emergency (ER) | payer MEDICARE, BC, OTHER ==
[~2019-02-03] VITALS: Ht 175.3 cm; Wt 78.2 kg
[~2019-02-03 16:06] MED LIST changes: +ALPH100C PO; +ANAS1TAB10 PO; +CHOL-4 PO; -CHOL100046 PO; -FOLI1TAB16 PO; +GARL500T4 PO; +IRON15TA3 PO; +ISOS20TA6 PO; -ISOS30TA6 PO; +KEN0.1O TP; +LACT1CAP65 PO; +LEVO500C3 PO; -METO25TA6 PO; +METO50TA17 PO; -MULT-1179 PO; -PANT40TA4 PO; +RESERVATROL; +RIBO1POW3 PO; -THI100T PO; +UBID100C45 PO; +VITA400T8 PO; +VITA40TA PO; +[UNRECOGNIZED DRUG - CODE] PO; +[UNRECOGNIZED DRUG - OTHER]; +[UNRECOGNIZED DRUG - OTHER]; +[UNRECOGNIZED DRUG - OTHER] PO
[2019-02-03] MEDS ORDERED: dexamethasone sod phosphate 10mg/ml inj IV STA (16:46)
[2019-02-03] MEDS ORDERED: diphenhydrAMINE 50 mg/ml inj IV ONE (16:50)
[2019-02-03 16:52] LABS: BASOPHILS % (AUTO) 0.8 % (0-1); EOSINOPHILS # (AUTO) 0.3 X10'3 (0-0.9); EOSINOPHILS % (AUTO) 6.1 % (0-6); HEMATOCRIT 38.4 % (42.0-52.0); HEMOGLOBIN 13.2 g/dl (14.0-17.9); LYMPHOCYTES # (AUTO) 1.1 X10'3 (1.1-4.8); LYMPHOCYTES % (AUTO) 20.3 % (21-51); MEAN CORPUSCULAR HEMOGLOBIN 34.7 PG (27.0-31.0); MEAN CORPUSCULAR HGB CONC 34.4 g/dL (33.0-36.5); MEAN CORPUSCULAR VOLUME 100.8 FL (78-98); MEAN PLATELET VOLUME 7.4 FL (7.4-10.4); MONOCYTES # (AUTO) 0.4 X10'3 (0-0.9); MONOCYTES % (AUTO) 7.1 % (2-12); NEUTROPHILS # (AUTO) 3.6 X10'3 (1.8-7.7); NEUTROPHILS % (AUTO) 65.7 % (42-75); PLATELET COUNT 239 X10'3 (140-440); RED BLOOD COUNT 3.81 X10'6 (4.70-6.10); RED CELL DISTRIBUTION WIDTH 13.9 % (11.5-14.5); WHITE BLOOD COUNT 5.5 X10'3 (4.5-11.0)
[2019-02-03 17:07] LABS: ALANINE AMINOTRANSFERASE 17 U/L (12-78); ALBUMIN 3.7 G/DL (3.4-5.0); ALBUMIN/GLOBULIN RATIO 1.1 (1.1-1.5); ALKALINE PHOSPHATASE 69 IU/L (46-116); ANION GAP 9 (8-16); ASPARTATE AMINO TRANSFERASE 14 U/L (10-37); BILIRUBIN,TOTAL 1.1 MG/DL (0.1-1.0); BLOOD UREA NITROGEN 19 MG/DL (7-18); BUN/CREATININE RATIO 17.9 (5.4-32.0); CALCIUM 9.3 MG/DL (8.5-10.1); CHLORIDE 104 MMOL/L (99-107); CREATININE 1.06 MG/DL (0.60-1.10); GLUCOSE 103 MG/DL (70-104); POTASSIUM 4.1 MMOL/L (3.5-5.1); SODIUM 140 MMOL/L (135-145); TOTAL CARBON DIOXIDE 27.5 MMOL/L (24-32); eGFR 68 ML/MIN
[2019-02-03] MEDS ORDERED: iohexol 350MG/ML 100ml bottle IV ONE (17:13)
[2019-02-03 19:07] VITALS: BP 155/85
== END 2019-02-03 19:17 | disposition home or self-care (01) ==
LOC: ER 16:07
DX: R55 Syncope and collapse (principal); I20.8 Other forms of angina pectoris; I10 Essential (primary) hypertension; I25.2 Old myocardial infarction; J44.9 Chronic obstructive pulmonary disease, unspecified; Z98.61 Coronary angioplasty status; Z95.1 Presence of aortocoronary bypass graft; Z98.890 Other specified postprocedural states; Z88.2 Allergy status to sulfonamides; Z88.6 Allergy status to analgesic agent; Z88.8 Allergy status to other drugs, medicaments and biological substances; Z79.899 Other long term (current) drug therapy; Z86.73 Personal history of transient ischemic attack (TIA), and cerebral infarction without residual deficits
CPT/HCPCS: 36415; 71045; 71275; 74174; 80053; 83880; 84484; 85025; 93005; 96374; 96375; 99284; J1100; J1200; Q9967

== ENCOUNTER 2019-03-18 10:26 | Emergency (ER) | payer MEDICARE, BC ==
[~2019-03-18] VITALS: Ht 175.3 cm; Wt 77.3 kg
[2019-03-18] MEDS ORDERED: nitroGLYCERIN 1gm ointment UD TP ONE (10:50)
[2019-03-18 11:05] LABS: BASOPHILS % (AUTO) 0.6 % (0-1); EOSINOPHILS # (AUTO) 0.3 X10'3 (0-0.9); HEMATOCRIT 36.5 % (42.0-52.0); HEMOGLOBIN 12.8 g/dl (14.0-17.9); LYMPHOCYTES # (AUTO) 1.3 X10'3 (1.1-4.8); MEAN CORPUSCULAR HEMOGLOBIN 35.1 PG (27.0-31.0); MEAN CORPUSCULAR VOLUME 100.3 FL (78-98); MEAN PLATELET VOLUME 7.2 FL (7.4-10.4); MONOCYTES # (AUTO) 0.3 X10'3 (0-0.9); MONOCYTES % (AUTO) 6.1 % (2-12); NEUTROPHILS # (AUTO) 3.3 X10'3 (1.8-7.7); NEUTROPHILS % (AUTO) 63.3 % (42-75); PLATELET COUNT 216 X10'3 (140-440); RED BLOOD COUNT 3.64 X10'6 (4.70-6.10); RED CELL DISTRIBUTION WIDTH 12.8 % (11.5-14.5); WHITE BLOOD COUNT 5.3 X10'3 (4.5-11.0)
[2019-03-18 11:22] LABS: ALANINE AMINOTRANSFERASE 15 U/L (12-78); ALBUMIN 3.6 G/DL (3.4-5.0); ALBUMIN/GLOBULIN RATIO 1.2 (1.1-1.5); ALKALINE PHOSPHATASE 74 IU/L (46-116); ANION GAP 9 (8-16); ASPARTATE AMINO TRANSFERASE 10 U/L (10-37); BILIRUBIN,TOTAL 0.8 MG/DL (0.1-1.0); BLOOD UREA NITROGEN 20 MG/DL (7-18); BUN/CREATININE RATIO 15.7 (5.4-32.0); CALCIUM 9.5 MG/DL (8.5-10.1); CHLORIDE 106 MMOL/L (99-107); CREATININE 1.27 MG/DL (0.60-1.10); GLUCOSE 102 MG/DL (70-104); POTASSIUM 3.6 MMOL/L (3.5-5.1); SODIUM 143 MMOL/L (135-145); TOTAL CARBON DIOXIDE 27.7 MMOL/L (24-32); TOTAL PROTEIN 6.7 G/DL (6.4-8.2); eGFR 55 ML/MIN
[2019-03-18 11:24] LABS: PARTIAL THROMBOPLASTIN TIME 33 SECONDS (22-32)
[2019-03-18] MEDS ORDERED: acetaminophen 325mg tablet PO ONE (13:35)
--- NOTE | 2019-03-18 14:42 | NUR ---
pt stated he felt better after oxygen was applied, that his chest and elbow pain stopped
[2019-03-18 15:29] VITALS: BP 113/75
== END 2019-03-18 15:31 | disposition home or self-care (01) ==
LOC: ER 10:26
DX: R07.89 Other chest pain (principal); I25.10 Atherosclerotic heart disease of native coronary artery without angina pectoris; I10 Essential (primary) hypertension; I25.2 Old myocardial infarction; J44.9 Chronic obstructive pulmonary disease, unspecified; Z98.61 Coronary angioplasty status; Z95.1 Presence of aortocoronary bypass graft; Z98.890 Other specified postprocedural states; Z86.73 Personal history of transient ischemic attack (TIA), and cerebral infarction without residual deficits; Z88.1 Allergy status to other antibiotic agents; Z88.2 Allergy status to sulfonamides; Z88.6 Allergy status to analgesic agent; Z79.899 Other long term (current) drug therapy
CPT/HCPCS: 36415; 71045; 80053; 83735; 83880; 84484; 85025; 85610; 85730; 93005; 99284

== ENCOUNTER 2019-05-06 12:45 | Emergency (ER) | payer MEDICARE, BC ==
[~2019-05-06] VITALS: Ht 175.3 cm; Wt 78.2 kg
[2019-05-06 13:24] LABS: BASOPHILS % (AUTO) 0.5 % (0-1); EOSINOPHILS # (AUTO) 0.2 X10'3 (0-0.9); EOSINOPHILS % (AUTO) 2.2 % (0-6); HEMATOCRIT 38.1 % (42.0-52.0); HEMOGLOBIN 13.4 g/dl (14.0-17.9); LYMPHOCYTES # (AUTO) 1.2 X10'3 (1.1-4.8); LYMPHOCYTES % (AUTO) 12.6 % (21-51); MEAN CORPUSCULAR HEMOGLOBIN 35.4 PG (27.0-31.0); MEAN CORPUSCULAR HGB CONC 35.3 g/dL (33.0-36.5); MEAN CORPUSCULAR VOLUME 100.4 FL (78-98); MEAN PLATELET VOLUME 7.3 FL (7.4-10.4); MONOCYTES # (AUTO) 0.6 X10'3 (0-0.9); NEUTROPHILS # (AUTO) 7.4 X10'3 (1.8-7.7); NEUTROPHILS % (AUTO) 78.7 % (42-75); PLATELET COUNT 286 X10'3 (140-440); RED CELL DISTRIBUTION WIDTH 12.9 % (11.5-14.5); WHITE BLOOD COUNT 9.4 X10'3 (4.5-11.0)
[2019-05-06 13:40] LABS: PARTIAL THROMBOPLASTIN TIME 28 SECONDS (22-32)
[2019-05-06 13:54] LABS: GLUCOSE 97 MG/DL (70-104); POTASSIUM 4.2 MMOL/L (3.5-5.1); SODIUM 142 MMOL/L (135-145)
[2019-05-06 13:55] LABS: ALANINE AMINOTRANSFERASE 21 U/L (12-78); ALBUMIN 4.2 G/DL (3.4-5.0); ALBUMIN/GLOBULIN RATIO 1.1 (1.1-1.5); ALKALINE PHOSPHATASE 73 IU/L (46-116); ANION GAP 14 (8-16); ASPARTATE AMINO TRANSFERASE 19 U/L (10-37); BILIRUBIN,TOTAL 1.2 MG/DL (0.1-1.0); BLOOD UREA NITROGEN 18 MG/DL (7-18); CALCIUM 9.7 MG/DL (8.5-10.1); CHLORIDE 104 MMOL/L (99-107); CREATININE 1.06 MG/DL (0.60-1.10); TOTAL CARBON DIOXIDE 24.5 MMOL/L (24-32); TOTAL PROTEIN 8.1 G/DL (6.4-8.2); eGFR 68 ML/MIN
--- NOTE | 2019-05-06 16:47 | NUR ---
CALLED [facility], ETA 30 MINS
[2019-05-06 16:49] VITALS: BP 169/103
== END 2019-05-06 16:51 | disposition home or self-care (01) ==
LOC: ER 12:45
DX: R07.89 Other chest pain (principal); G89.29 Other chronic pain; I25.10 Atherosclerotic heart disease of native coronary artery without angina pectoris; I10 Essential (primary) hypertension; I25.2 Old myocardial infarction; J44.9 Chronic obstructive pulmonary disease, unspecified; Z95.1 Presence of aortocoronary bypass graft; Z98.61 Coronary angioplasty status; Z98.890 Other specified postprocedural states; Z86.73 Personal history of transient ischemic attack (TIA), and cerebral infarction without residual deficits; Z88.2 Allergy status to sulfonamides; Z88.1 Allergy status to other antibiotic agents; Z91.041 Radiographic dye allergy status; Z88.8 Allergy status to other drugs, medicaments and biological substances; Z79.2 Long term (current) use of antibiotics; Z79.899 Other long term (current) drug therapy
CPT/HCPCS: 36415; 71045; 80053; 84484; 85025; 85610; 85730; 93005; 99284

== ENCOUNTER 2019-07-04 12:24 | Emergency (ER) | payer MEDICARE, BC ==
[~2019-07-04] VITALS: Ht 175.3 cm; Wt 115.0 kg
[2019-07-04 12:57] LABS: BASOPHILS # (AUTO) 0.1 X10'3 (0-0.2); BASOPHILS % (AUTO) 0.7 % (0-1); EOSINOPHILS # (AUTO) 0.3 X10'3 (0-0.9); HEMATOCRIT 33.8 % (42.0-52.0); HEMOGLOBIN 11.8 g/dl (14.0-17.9); LYMPHOCYTES # (AUTO) 1.7 X10'3 (1.1-4.8); MEAN CORPUSCULAR HEMOGLOBIN 34.4 PG (27.0-31.0); MEAN CORPUSCULAR VOLUME 98.6 FL (78-98); MEAN PLATELET VOLUME 6.8 FL (7.4-10.4); MONOCYTES # (AUTO) 0.6 X10'3 (0-0.9); MONOCYTES % (AUTO) 6.4 % (2-12); NEUTROPHILS # (AUTO) 6.6 X10'3 (1.8-7.7); NEUTROPHILS % (AUTO) 71.9 % (42-75); PLATELET COUNT 339 X10'3 (140-440); RED BLOOD COUNT 3.43 X10'6 (4.70-6.10); RED CELL DISTRIBUTION WIDTH 13.3 % (11.5-14.5); WHITE BLOOD COUNT 9.3 X10'3 (4.5-11.0)
[2019-07-04 13:12] LABS: ALANINE AMINOTRANSFERASE 17 U/L (12-78); ALBUMIN/GLOBULIN RATIO 0.8 (1.1-1.5); ALKALINE PHOSPHATASE 67 IU/L (46-116); ANION GAP 6 (8-16); ASPARTATE AMINO TRANSFERASE 15 U/L (10-37); BILIRUBIN,TOTAL 0.4 MG/DL (0.1-1.0); BLOOD UREA NITROGEN 17 MG/DL (7-18); BUN/CREATININE RATIO 12.7 (5.4-32.0); CALCIUM 8.9 MG/DL (8.5-10.1); CHLORIDE 106 MMOL/L (99-107); CREATININE 1.34 MG/DL (0.60-1.10); GLUCOSE 118 MG/DL (70-104); SODIUM 140 MMOL/L (135-145); TOTAL CARBON DIOXIDE 28.4 MMOL/L (24-32); TOTAL PROTEIN 6.8 G/DL (6.4-8.2); eGFR 51 ML/MIN
[2019-07-04 13:33] LABS: ETHANOL < 0.010 GM/DL (0.0-0.010)
[2019-07-04] MEDS ORDERED: dexamethasone sod phosphate 10mg/ml inj IV STA (13:45)
[2019-07-04 14:03] VITALS: BP 115/68
== END 2019-07-04 14:05 | disposition home or self-care (01) ==
LOC: ER 12:24
DX: I25.118 Atherosclerotic heart disease of native coronary artery with other forms of angina pectoris (principal); J40 Bronchitis, not specified as acute or chronic; I50.9 Heart failure, unspecified; I11.0 Hypertensive heart disease with heart failure; I25.2 Old myocardial infarction; J44.9 Chronic obstructive pulmonary disease, unspecified; Z98.61 Coronary angioplasty status; Z95.1 Presence of aortocoronary bypass graft; Z98.890 Other specified postprocedural states; Z86.73 Personal history of transient ischemic attack (TIA), and cerebral infarction without residual deficits; Z88.1 Allergy status to other antibiotic agents; Z88.2 Allergy status to sulfonamides; Z88.6 Allergy status to analgesic agent; Z91.041 Radiographic dye allergy status; Z79.899 Other long term (current) drug therapy
CPT/HCPCS: 36415; 71045; 80053; 80320; 84484; 85025; 93005; 96374; 99284; J1100

== ENCOUNTER 2020-04-14 16:30 | Inpatient (IN) | payer OTHER, MEDICARE, BC ==
[~2020-04-14] VITALS: Ht 175.3 cm; Wt 75.9 kg
[~2020-04-14 16:30] MED LIST changes: -EVOL140S SQ; +EVOL140S2 SQ
[2020-04-14 18:21] LABS: BASOPHILS % (AUTO) 0.6 % (0-1); EOSINOPHILS # (AUTO) 0.1 X10'3 (0-0.9); EOSINOPHILS % (AUTO) 2.6 % (0-6); HEMATOCRIT 34.3 % (42.0-52.0); HEMOGLOBIN 11.7 g/dl (14.0-17.9); LYMPHOCYTES % (AUTO) 19.7 % (21-51); MEAN CORPUSCULAR HGB CONC 34.1 g/dL (33.0-36.5); MEAN CORPUSCULAR VOLUME 102.6 FL (78-98); MONOCYTES # (AUTO) 0.4 X10'3 (0-0.9); MONOCYTES % (AUTO) 8.3 % (2-12); NEUTROPHILS # (AUTO) 3.4 X10'3 (1.8-7.7); NEUTROPHILS % (AUTO) 68.8 % (42-75); PLATELET COUNT 221 X10'3 (140-440); RED BLOOD COUNT 3.35 X10'6 (4.70-6.10); RED CELL DISTRIBUTION WIDTH 14.4 % (11.5-14.5)
--- NOTE | 2020-04-14 19:03 | NUR ---
PT STATES HE WAS HUNGRY. EDMD JOSE ANTONIO BILLSAY WITH PROVIDING FOOD. PT GIVEN SANDWICH AND MILK.
[2020-04-14 19:11] LABS: ALBUMIN 3.7 G/DL (3.4-5.0); ANION GAP 5 (8-16); BLOOD UREA NITROGEN 25 MG/DL (7-18); BUN/CREATININE RATIO 20.5 (5.4-32.0); CALCIUM 9.1 MG/DL (8.5-10.1); CHLORIDE 108 MMOL/L (99-107); CREATININE 1.22 MG/DL (0.60-1.10); GLUCOSE 107 MG/DL (70-104); POTASSIUM 3.9 MMOL/L (3.5-5.1); SODIUM 140 MMOL/L (135-145); eGFR 57 ML/MIN
[2020-04-14] MEDS ORDERED: nitroGLYCERIN 0.4mg SUBLingual tab SL PRN ×2 (20:10→22:30)
--- NOTE | 2020-04-14 20:10 | NUR ---
WHILE DRAWING PT 3 HOUR TROPONIN, PT REPORTS SUDDEN 5/10 CHEST PAIN NON RADIATING. RECEIVED VERBAL ORDER FOR EKG AND NITRO 0.4MG SL TAB. ORDER PLACED RECEIVED
[2020-04-14 20:20] VITALS: BP 147/78
[2020-04-14] MEDS ORDERED: heparin 25,000 UNIT/250ml bag 250 ML IV SCH ×2 (20:36→21:09)
[2020-04-14] MEDS ORDERED: heparin 10,000 units/1 ML INJ IV ONE ×3 (20:40→21:10)
[2020-04-14] MEDS ORDERED: heparin 10,000 units/1 ML INJ IV PRN ×2 (20:40→21:10)
[2020-04-14 20:52] LABS: PARTIAL THROMBOPLASTIN TIME 24 SECONDS (22-32)
[2020-04-14] MEDS ORDERED: ipratropium/albuterol 3ml nebule NEB PRN (21:10)
[2020-04-14] MEDS ORDERED: mag hydrox/Alum hydrox/simeth 30ml oral suspension PO PRN (21:10)
[2020-04-14] MEDS ORDERED: nitroGLYCERIN-Tridil 50MG/D5W 250 ML IV SCH (21:10)
[2020-04-14] MEDS ORDERED: magnesium 4gm in 100ml NS 100 ML IV PRN (21:10)
[2020-04-14] MEDS ORDERED: acetaminophen 325mg tablet PO PRN (21:10)
[2020-04-14] MEDS ORDERED: potassium Cl 20 mEq SR tablet PO PRN ×2 (21:10)
[2020-04-14] MEDS ORDERED: potassium CL 10mEq/100ml bag 100 ML IV PRN ×2 (21:10)
[2020-04-14] MEDS ORDERED: ondansetron/PF 4mg/2ml inj IV PRN (21:10)
[2020-04-14] MEDS ORDERED: magnesium 2GM in 50ml NS 50 ML IV PRN (21:10)
--- NOTE | 2020-04-14 21:25 | NUR ---
VERIFIED WITH RE[facility]NA IN PHARMACY AND WITH [facility]: NITROGLYCERIN AND HEPARIN SODIUM ARE IV COMPATIBLE.
--- NOTE | 2020-04-14 22:20 | NUR ---
Patient in room PCU 3013. I have received report from Erlinda OCHOA in the ER and had the opportunity to ask questions and assume patient care. Patient was transported by gurney and upon arrival no acute distress was noted.
[2020-04-14] MEDS ORDERED: metoprolol tartrate 1mg/ml inj IV PRN (22:30)
[2020-04-14] MEDS ORDERED: aminophylline 250mg/10ml inj. IV PRN (22:30)
[2020-04-14] MEDS ORDERED: regadenoson 0.4mg/5ml syringe IV ONE (22:30)
--- NOTE | 2020-04-14 23:04 | NUR ---
Sent page to Dr. Booker- [id number] Gurpreet Dickens. Patient is asking for Tylenol for his headache. Thank you. Eva OCHOA ext [phone]
[2020-04-15] VITALS: BP 147/125
--- NOTE | 2020-04-15 01:21 | NUR ---
Sent page- [id number] Gurpreet Dickens. Patient would like something for his intermittent chest pain. Thank you. Eva OCHOA Ext. [phone]
[2020-04-15] MEDS ORDERED: morphine 2 MG/ML inj. syringe IV PRN ×2 (01:25)
[2020-04-15 02:00] VITALS: BP 128/61
[2020-04-15 04:00] VITALS: BP 145/76
[2020-04-15] MEDS ORDERED: HYDROmorphone 1 mg/ml syringe IM ONE (04:10)
[2020-04-15] MEDS ORDERED: nitroGLYCERIN-Tridil 50MG/D5W 250 ML IV SCH (04:15)
[2020-04-15 06:12] LABS: BASOPHILS % (AUTO) 0.6 % (0-1); EOSINOPHILS # (AUTO) 0.2 X10'3 (0-0.9); EOSINOPHILS % (AUTO) 3.2 % (0-6); HEMATOCRIT 32.3 % (42.0-52.0); HEMOGLOBIN 11.3 g/dl (14.0-17.9); LYMPHOCYTES # (AUTO) 1.5 X10'3 (1.1-4.8); LYMPHOCYTES % (AUTO) 28.5 % (21-51); MEAN CORPUSCULAR HEMOGLOBIN 35.9 PG (27.0-31.0); MEAN CORPUSCULAR HGB CONC 34.9 g/dL (33.0-36.5); MEAN CORPUSCULAR VOLUME 102.6 FL (78-98); MEAN PLATELET VOLUME 7.9 FL (7.4-10.4); MONOCYTES # (AUTO) 0.4 X10'3 (0-0.9); MONOCYTES % (AUTO) 7.6 % (2-12); NEUTROPHILS # (AUTO) 3.2 X10'3 (1.8-7.7); NEUTROPHILS % (AUTO) 60.1 % (42-75); PLATELET COUNT 214 X10'3 (140-440); RED BLOOD COUNT 3.15 X10'6 (4.70-6.10); RED CELL DISTRIBUTION WIDTH 14.4 % (11.5-14.5); WHITE BLOOD COUNT 5.4 X10'3 (4.5-11.0)
--- NOTE | 2020-04-15 06:14 | NUR ---
Problems reprioritized. Patient report given, questions answered & plan of care reviewed with Mitzy OCHOA. Patient was resting comfortably during report and thanked me for my care.
[2020-04-15 06:37] LABS: ALANINE AMINOTRANSFERASE 21 U/L (12-78); ALBUMIN 3.2 G/DL (3.4-5.0); ALBUMIN/GLOBULIN RATIO 1.2 (1.1-1.5); ALKALINE PHOSPHATASE 37 IU/L (46-116); ANION GAP 5 (8-16); ASPARTATE AMINO TRANSFERASE 19 U/L (10-37); BLOOD UREA NITROGEN 22 MG/DL (7-18); BUN/CREATININE RATIO 21.6 (5.4-32.0); CALCIUM 8.3 MG/DL (8.5-10.1); CHLORIDE 108 MMOL/L (99-107); CREATININE 1.02 MG/DL (0.60-1.10); GLUCOSE 89 MG/DL (70-104); SODIUM 141 MMOL/L (135-145); TOTAL CARBON DIOXIDE 27.8 MMOL/L (24-32); TOTAL PROTEIN 5.9 G/DL (6.4-8.2); eGFR 70 ML/MIN
[2020-04-15 06:41] LABS: MAGNESIUM 1.8 MG/DL (1.5-2.4)
[2020-04-15 07:00] VITALS: BP 111/69
[2020-04-15] MEDS ORDERED: docusate sod 100mg capsule PO SCH (08:00)
[2020-04-15] MEDS ORDERED: isosorbide mononitrate 30mg tab.SR.24H PO SCH (08:00)
[2020-04-15] MEDS ORDERED: tamsulosin 0.4mg capsule PO SCH (08:00)
[2020-04-15] MEDS ORDERED: lactobacillus rhamnosus 10,000 MMU CELLS/CAPSULE PO SCH (08:00)
[2020-04-15] MEDS ORDERED: triamcinolone acet 0.1% cream 15gm TP SCH (08:00)
[2020-04-15] MEDS ORDERED: K and/or MAG REPLACEMENT MC SCH (08:00)
[2020-04-15] MEDS ORDERED: metoprolol tartrate 50mg tablet PO SCH (08:00)
[2020-04-15] MEDS ORDERED: non-formulary drug (Ubidecarenone (Co Q-10) 100 MG) PO SCH (08:00)
[2020-04-15] MEDS ORDERED: losartan 50mg tablet PO SCH (08:00)
[2020-04-15 08:36] VITALS: BP_SYST 111
--- NOTE | 2020-04-15 08:41 | NUR ---
Dr. Cano, patients established toy stuffer has requested the Lexiscan be cancelled.
--- NOTE | 2020-04-15 11:40 | NUR ---
Patient stable per MD orders. Discharge instructions given to patient in detail. IV discontinued with cannula intact. monitor and storage bin tender discontinued. Appointment made with the [facility] on 04/18/20 at 1100 via telephone. No new prescriptions. Wristbands cut at time of discharge. Patient wheeled by patient manager career Belinda. Private vehicle awaited patient in parking lot.
== END 2020-04-15 11:43 | disposition home health service (06) | DRG 303 ==
LOC: ER 16:30 → ED HOLD 21:09 → PCU 3S 22:25
PROVIDERS: ADMIT Family Medicine; ATTEND Internal Medicine
DX: I25.110 Atherosclerotic heart disease of native coronary artery with unstable angina pectoris (principal); I50.22 Chronic systolic (congestive) heart failure; N17.9 Acute kidney failure, unspecified; I11.0 Hypertensive heart disease with heart failure; I35.0 Nonrheumatic aortic (valve) stenosis; D64.9 Anemia, unspecified; J44.9 Chronic obstructive pulmonary disease, unspecified; K21.9 Gastro-esophageal reflux disease without esophagitis; N40.0 Benign prostatic hyperplasia without lower urinary tract symptoms; M48.02 Spinal stenosis, cervical region; Z80.0 Family history of malignant neoplasm of digestive organs; Z85.49 Personal history of malignant neoplasm of other male genital organs; I25.2 Old myocardial infarction; Z86.73 Personal history of transient ischemic attack (TIA), and cerebral infarction without residual deficits; Z87.891 Personal history of nicotine dependence; Z95.1 Presence of aortocoronary bypass graft; Z88.2 Allergy status to sulfonamides; Z88.1 Allergy status to other antibiotic agents; Z91.041 Radiographic dye allergy status; Z79.899 Other long term (current) drug therapy
CPT/HCPCS: 36415; 71046; 76937; 80048; 80053; 83735; 84484; 85025; 85610; 85730; 87081; 93005; 93306; 93308; 94760; 96374; 97116; 97161; 99285; G0378; J1170; J1644; J2270; J2405; J3490

== ENCOUNTER 2020-07-08 16:37 | Emergency (ER) | payer OTHER, MEDICARE, BC ==
[~2020-07-08] VITALS: Ht 175.3 cm; Wt 75.0 kg
[~2020-07-08 16:37] MED LIST changes: -ADV50100; -ALPH100C PO; -CHOL-4 PO; -EVOL140S2 SQ; -FERR-119 PO; -IRON15TA3 PO; -LEVO500C3 PO; -RANO500T3 PO; -RESERVATROL; -RIBO1POW3 PO; -VITA150T PO; -VITA400T8 PO; -VITA40TA PO; -VITC500T PO; -[UNRECOGNIZED DRUG - CODE] PO; -[UNRECOGNIZED DRUG - CODE] PO; -[UNRECOGNIZED DRUG - OTHER]; -[UNRECOGNIZED DRUG - OTHER]; -[UNRECOGNIZED DRUG - OTHER] PO
[2020-07-08 18:13] LABS: BASOPHILS % (AUTO) 0.4 % (0-1); EOSINOPHILS # (AUTO) 0.3 X10'3 (0-0.9); EOSINOPHILS % (AUTO) 3.9 % (0-6); HEMATOCRIT 35.8 % (42.0-52.0); HEMOGLOBIN 12.6 g/dl (14.0-17.9); LYMPHOCYTES # (AUTO) 1.1 X10'3 (1.1-4.8); LYMPHOCYTES % (AUTO) 13.6 % (21-51); MEAN CORPUSCULAR HEMOGLOBIN 35.3 PG (27.0-31.0); MEAN CORPUSCULAR HGB CONC 35.3 g/dL (33.0-36.5); MEAN PLATELET VOLUME 7.8 FL (7.4-10.4); MONOCYTES # (AUTO) 0.6 X10'3 (0-0.9); MONOCYTES % (AUTO) 7.1 % (2-12); NEUTROPHILS # (AUTO) 6.2 X10'3 (1.8-7.7); PLATELET COUNT 244 X10'3 (140-440); RED BLOOD COUNT 3.58 X10'6 (4.70-6.10); WHITE BLOOD COUNT 8.2 X10'3 (4.5-11.0)
[2020-07-08 18:16] LABS: ALANINE AMINOTRANSFERASE 22 U/L (12-78); ALBUMIN 3.8 G/DL (3.4-5.0); ALBUMIN/GLOBULIN RATIO 1.1 (1.1-1.5); ALKALINE PHOSPHATASE 64 IU/L (46-116); ANION GAP 10 (8-16); ASPARTATE AMINO TRANSFERASE 17 U/L (10-37); BILIRUBIN,TOTAL 1.3 MG/DL (0.1-1.0); BLOOD UREA NITROGEN 17 MG/DL (7-18); BUN/CREATININE RATIO 15.9 (5.4-32.0); CALCIUM 9.4 MG/DL (8.5-10.1); CHLORIDE 105 MMOL/L (99-107); CREATININE 1.07 MG/DL (0.60-1.10); GLUCOSE 120 MG/DL (70-104); LIPASE 217 U/L (73-393); POTASSIUM 3.6 MMOL/L (3.5-5.1); SODIUM 140 MMOL/L (135-145); TOTAL CARBON DIOXIDE 25.5 MMOL/L (24-32); TOTAL PROTEIN 7.2 G/DL (6.4-8.2); eGFR 66 ML/MIN
[2020-07-08] MEDS ORDERED: ondansetron/PF 4mg/2ml inj IV ONE (18:35)
[2020-07-08 19:03] LABS: PARTIAL THROMBOPLASTIN TIME 27 SECONDS (22-32)
--- NOTE | 2020-07-08 19:16 | NUR ---
Pt given nausea medication then sent to the CT scanner with CT staff, via gurney with side rails raised.
[2020-07-08 19:20] LABS: CLARITY,URINE CLEAR (Clear); COLOR,URINE YELLOW (Yellow); GLUCOSE, URINE NEGATIVE (Neg); KETONES,URINE TRACE mg/dl (Neg); LEUKOCYTE ESTERASE ,URINE NEGATIVE (Neg); NITRITES, URINE NEGATIVE (Neg); OCCULT BLOOD,URINE TRACE-INTACT (Neg); PROTEIN,URINE 100 mg/dl (Neg); UROBILINOGEN,URINE 0.2 E.U/dL (0.2-1.0)
[2020-07-08 19:39] LABS: UA COLLECTION TYPE CLN CATCH MIDSTREAM
[2020-07-08 19:40] LABS: BACTERIA,URINE NONE SEEN /HPF (Neg); RBC,URINE 0-2 /HPF (0-2); SQUAMOUS EPITHELIAL CELL,UR FEW /LPF (FEW); WBC,URINE NONE SEEN /HPF (0-4)
[2020-07-08 22:44] VITALS: BP 165/81
== END 2020-07-08 20:45 | disposition home or self-care (01) ==
LOC: ER 16:38
DX: R10.13 Epigastric pain (principal); R07.9 Chest pain, unspecified; R11.0 Nausea; R05 Cough; I11.0 Hypertensive heart disease with heart failure; J44.9 Chronic obstructive pulmonary disease, unspecified; Z79.899 Other long term (current) drug therapy; Z98.890 Other specified postprocedural states; Z88.1 Allergy status to other antibiotic agents; Z88.6 Allergy status to analgesic agent
CPT/HCPCS: 36415; 74176; 80053; 81001; 83690; 85025; 85610; 85730; 93005; 96374; 99285; J2405

== ENCOUNTER 2020-07-20 13:30 | Emergency (ER) | payer OTHER, MEDICARE, BC ==
[~2020-07-20] VITALS: Ht 175.3 cm; Wt 76.4 kg
[2020-07-20] MEDS ORDERED: normal saline 1000ML IV soln IVB ONE ×2 (14:20→15:35)
[2020-07-20 14:59] LABS: BASOPHILS % (AUTO) 0.5 % (0-1); EOSINOPHILS # (AUTO) 0.3 X10'3 (0-0.9); HEMATOCRIT 26.4 % (42.0-52.0); HEMOGLOBIN 9.1 g/dl (14.0-17.9); LYMPHOCYTES # (AUTO) 0.8 X10'3 (1.1-4.8); LYMPHOCYTES % (AUTO) 12.8 % (21-51); MEAN CORPUSCULAR HEMOGLOBIN 34.6 PG (27.0-31.0); MEAN CORPUSCULAR HGB CONC 34.3 g/dL (33.0-36.5); MEAN CORPUSCULAR VOLUME 100.9 FL (78-98); MEAN PLATELET VOLUME 7.4 FL (7.4-10.4); MONOCYTES # (AUTO) 0.4 X10'3 (0-0.9); MONOCYTES % (AUTO) 5.8 % (2-12); NEUTROPHILS # (AUTO) 4.7 X10'3 (1.8-7.7); NEUTROPHILS % (AUTO) 75.9 % (42-75); PLATELET COUNT 187 X10'3 (140-440); RED BLOOD COUNT 2.62 X10'6 (4.70-6.10); RED CELL DISTRIBUTION WIDTH 13.3 % (11.5-14.5); WHITE BLOOD COUNT 6.2 X10'3 (4.5-11.0)
[2020-07-20 15:04] LABS: CLARITY,URINE SLIGHTLY CLOUDY (Clear); COLOR,URINE YELLOW (Yellow); GLUCOSE, URINE NEGATIVE (Neg); KETONES,URINE TRACE mg/dl (Neg); LEUKOCYTE ESTERASE ,URINE NEGATIVE (Neg); NITRITES, URINE NEGATIVE (Neg); OCCULT BLOOD,URINE TRACE-LYSED (Neg); PROTEIN,URINE TRACE mg/dl (Neg); UA COLLECTION TYPE URINAL; UROBILINOGEN,URINE 0.2 E.U/dL (0.2-1.0)
[2020-07-20 15:10] LABS: SQUAMOUS EPITHELIAL CELL,UR FEW /LPF (FEW)
[2020-07-20 15:11] LABS: BACTERIA,URINE FEW /HPF (Neg); WBC,URINE 0-4 /HPF (0-4)
[2020-07-20 15:13] LABS: PARTIAL THROMBOPLASTIN TIME 28 SECONDS (22-32)
[2020-07-20 15:15] LABS: ALANINE AMINOTRANSFERASE 20 U/L (12-78); ALBUMIN 2.5 G/DL (3.4-5.0); ALKALINE PHOSPHATASE 46 IU/L (46-116); ANION GAP 10 (8-16); ASPARTATE AMINO TRANSFERASE 14 U/L (10-37); BILIRUBIN,TOTAL 0.7 MG/DL (0.1-1.0); BLOOD UREA NITROGEN 17 MG/DL (7-18); BUN/CREATININE RATIO 17.9 (5.4-32.0); CALCIUM 6.5 MG/DL (8.5-10.1); CHLORIDE 115 MMOL/L (99-107); CREATININE 0.95 MG/DL (0.60-1.10); ETHANOL < 0.010 GM/DL (0.0-0.010); GLUCOSE 88 MG/DL (70-104); LIPASE 180 U/L (73-393); MAGNESIUM 1.5 MG/DL (1.5-2.4); POTASSIUM 3.3 MMOL/L (3.5-5.1); SODIUM 145 MMOL/L (135-145); TOTAL CARBON DIOXIDE 19.7 MMOL/L (24-32); TOTAL PROTEIN 4.9 G/DL (6.4-8.2); eGFR 76 ML/MIN
[2020-07-20] MEDS ORDERED: magnesium oxide 400mg tablet PO ONE (15:30)
[2020-07-20] MEDS ORDERED: potassium Cl 20 mEq SR tablet PO ONE (15:30)
--- NOTE | 2020-07-20 16:25 | NUR ---
Pt requesting snack. Given sandwich and yogurt.
[2020-07-20 19:13] VITALS: BP 129/65
[2020-07-20 19:36] LABS: OCCULT BLOOD STOOL NEGATIVE (Neg)
== END 2020-07-20 20:03 | disposition home or self-care (01) ==
LOC: ER 13:30
DX: I95.1 Orthostatic hypotension (principal); D64.9 Anemia, unspecified; R19.7 Diarrhea, unspecified; I25.10 Atherosclerotic heart disease of native coronary artery without angina pectoris; I11.0 Hypertensive heart disease with heart failure; I50.9 Heart failure, unspecified; I25.2 Old myocardial infarction; J44.9 Chronic obstructive pulmonary disease, unspecified; Z95.5 Presence of coronary angioplasty implant and graft; Z95.1 Presence of aortocoronary bypass graft; Z72.89 Other problems related to lifestyle; Z98.890 Other specified postprocedural states; Z90.89 Acquired absence of other organs; Z88.1 Allergy status to other antibiotic agents; Z91.041 Radiographic dye allergy status; Z88.2 Allergy status to sulfonamides; Z79.899 Other long term (current) drug therapy
CPT/HCPCS: 36415; 71045; 80053; 80320; 81001; 82272; 83690; 83735; 84484; 85025; 85610; 85730; 93005; 96360; 99285; J7030

== ENCOUNTER 2020-09-04 23:03 | Emergency (ER) | payer OTHER, MEDICARE, BC ==
[~2020-09-04] VITALS: Ht 175.3 cm; Wt 70.5 kg
[~2020-09-04 23:03] MED LIST changes: +ACET-1015 PO; +ASPI81TA52 PO; +BUDE10.22 INH; +ESCI10TA66 PO; +EZET10TA6 PO; +FLO0.4C PO; +GABA-530 PO; -ISOS20TA6 PO; -KEN0.1O TP; +LEVO500T89 PO; +LOSA100T57 PO; +OMEP40CA13 PO; +RANO10003 PO; +TICA90TA PO; -flomax PO
[2020-09-05 00:20] LABS: BASOPHILS % (AUTO) 0.4 % (0-1); EOSINOPHILS # (AUTO) 0.1 X10'3 (0-0.9); EOSINOPHILS % (AUTO) 1.3 % (0-6); HEMATOCRIT 30.8 % (42.0-52.0); HEMOGLOBIN 10.6 g/dl (14.0-17.9); LYMPHOCYTES # (AUTO) 1.4 X10'3 (1.1-4.8); MEAN CORPUSCULAR HEMOGLOBIN 33.2 PG (27.0-31.0); MEAN CORPUSCULAR HGB CONC 34.5 g/dL (33.0-36.5); MEAN CORPUSCULAR VOLUME 96.4 FL (78-98); MEAN PLATELET VOLUME 8.2 FL (7.4-10.4); MONOCYTES # (AUTO) 0.4 X10'3 (0-0.9); MONOCYTES % (AUTO) 5.3 % (2-12); NEUTROPHILS # (AUTO) 5.6 X10'3 (1.8-7.7); PLATELET COUNT 318 X10'3 (140-440); RED BLOOD COUNT 3.19 X10'6 (4.70-6.10); RED CELL DISTRIBUTION WIDTH 14.6 % (11.5-14.5); WHITE BLOOD COUNT 7.5 X10'3 (4.5-11.0)
[2020-09-05 00:50] LABS: ALANINE AMINOTRANSFERASE 16 U/L (12-78); ALBUMIN 3.4 G/DL (3.4-5.0); ALBUMIN/GLOBULIN RATIO 0.9 (1.1-1.5); ALKALINE PHOSPHATASE 74 IU/L (46-116); ANION GAP 10 (8-16); ASPARTATE AMINO TRANSFERASE 15 U/L (10-37); BILIRUBIN,TOTAL 0.9 MG/DL (0.1-1.0); BLOOD UREA NITROGEN 15 MG/DL (7-18); BUN/CREATININE RATIO 13.8 (5.4-32.0); CALCIUM 9.4 MG/DL (8.5-10.1); CHLORIDE 104 MMOL/L (99-107); CREATININE 1.09 MG/DL (0.60-1.10); GLUCOSE 127 MG/DL (70-104); POTASSIUM 4.2 MMOL/L (3.5-5.1); SODIUM 139 MMOL/L (135-145); TOTAL CARBON DIOXIDE 25.4 MMOL/L (24-32); TOTAL PROTEIN 7.1 G/DL (6.4-8.2); eGFR 65 ML/MIN
--- NOTE | 2020-09-05 01:54 | NUR ---
Luis love in [facility] - 09/05/20 at 0156 by CHARLIE Rocephin infusing, zithromax to be administered when rocephin finished.
[2020-09-05] MEDS ORDERED: LIDOcaine 2% 10ml TOPICAL JELLY (Urojet) MM ONE (01:55)
--- NOTE | 2020-09-05 02:19 | NUR ---
Gave patient update to patients YUMIKO. [phone]
[2020-09-05 02:21] LABS: CLARITY,URINE CLEAR (Clear); COLOR,URINE YELLOW (Yellow); GLUCOSE, URINE NEGATIVE (Neg); KETONES,URINE 15 mg/dl (Neg); LEUKOCYTE ESTERASE ,URINE NEGATIVE (Neg); NITRITES, URINE NEGATIVE (Neg); OCCULT BLOOD,URINE TRACE-INTACT (Neg); PH,URINE 8.5 (4.8-8.0); PROTEIN,URINE 30 mg/dl (Neg)
[2020-09-05 02:28] LABS: UA COLLECTION TYPE URINAL
[2020-09-05 02:29] LABS: BACTERIA,URINE NONE SEEN /HPF (Neg); RBC,URINE 0-2 /HPF (0-2); SQUAMOUS EPITHELIAL CELL,UR FEW /LPF (FEW); WBC,URINE NONE SEEN /HPF (0-4)
--- NOTE | 2020-09-05 03:25 | NUR ---
Contacted pt's to inform her pt was discharged. states she cant come and get him because she cant drive in the dark. She states no other family members are present. Addendum: 09/05/20 at 0331 by CHARLIE Pt is unsafe to put in a taxi r/t weakness and confusion.
--- NOTE | 2020-09-05 03:51 | NUR ---
called and told Pt could be transported home by [employer], and to have a payment of $123.50 ready for Member Services Coordinator. approved transport and was given an ETA of approx 45 min. [employer] called for transport by wheelchair and they are dispatching a student truck driver.
[2020-09-05 03:54] VITALS: BP 143/84
[2020-09-05] MEDS ORDERED: nitroGLYCERIN 0.4mg SUBLingual tab SL ONE (04:21)
[2020-09-05] MEDS ORDERED: nitroGLYCERIN 0.4mg SUBLingual tab SL PRN (04:25)
--- NOTE | 2020-09-05 04:29 | NUR ---
While waiting for [employer] to transport patient, pt became angry and confused stating staff was witholding prescribed medications. Attempts were made to reorient patient. Pt climbed out of bed and was about to leave his room when he was spotted by staff member. Pt was still angry and said he needed his medication. When asked what medication he felt he needed he said he needed his nitro. Pt was assisted back to bed and nitro was obtained from the omnicell by MD order and administered. VSS 113/62, HR 72, 02 96%, RR 20. Pt stated he felt better after nitro administration. No other orders by MD.
== END 2020-09-05 05:18 | disposition home or self-care (01) ==
LOC: ER 23:04
DX: R41.0 Disorientation, unspecified (principal); I25.2 Old myocardial infarction; I11.0 Hypertensive heart disease with heart failure; I50.9 Heart failure, unspecified; I25.10 Atherosclerotic heart disease of native coronary artery without angina pectoris; J44.9 Chronic obstructive pulmonary disease, unspecified; G89.29 Other chronic pain; Z86.73 Personal history of transient ischemic attack (TIA), and cerebral infarction without residual deficits; Z87.440 Personal history of urinary (tract) infections; Z95.0 Presence of cardiac pacemaker; Z98.890 Other specified postprocedural states; Z72.89 Other problems related to lifestyle; Z88.1 Allergy status to other antibiotic agents; Z88.2 Allergy status to sulfonamides; Z88.8 Allergy status to other drugs, medicaments and biological substances; Z79.82 Long term (current) use of aspirin; Z79.899 Other long term (current) drug therapy
CPT/HCPCS: 36415; 70450; 71045; 80053; 81001; 85025; 93005; 99285

== ENCOUNTER 2022-01-08 09:37 | Day surgery (SDC) | payer MEDICARE, BC ==
[~2022-01-08] VITALS: Ht 175.3 cm; Wt 73.4 kg
[~2022-01-08 09:37] MED LIST changes: +ESCI-8 PO; -ESCI10TA66 PO; -LEVO500T89 PO; -OMEP40CA13 PO; +OMEP40CA21 PO
[2022-01-08] MEDS ORDERED: sodium bicarbonate (8.4%) inj. 150 MEQ in dextrose 5%-water 1,000 ML IV SCH (10:05)
--- NOTE | 2022-01-08 10:20 | NUR ---
Pt arrived with for procedure. Pt states he was not given instructions to fruit or nut picker a prescription for premedication. pt states he has not taken any medications in preparation for todays procedure. I will contact 's office for instructions for patient.
--- NOTE | 2022-01-08 10:45 | NUR ---
Spoke with Delilah at Dr. Cano's office. She was unable to confirm where the prescription for the patient was faxed or called into. Delilah attempted to connect me with Dr. Cano's medical coding specialist but was unable to do this. I asked to speak with Dr. Cano but was told he was not in the office. The patient was instructed to contact Dr. Cano's office today for follow up on obtaining prescription for premedication. Pt verbalized understanding. Pt was taken to scheduling and was rescheduling CTA with Yina at [facility]. Pt stated he "appreciated" the help.
--- NOTE | 2022-01-08 10:50 | NUR ---
IV dc'd, cannula intact. no s/s of bleeding or infection.
== END 2022-01-08 10:55 | disposition home or self-care (01) ==
LOC: SSTAY O 09:37
PROVIDERS: ATTEND Internal Medicine Interventional Cardiology
DX: I71.4 Abdominal aortic aneurysm, without rupture (principal); Z53.8 Procedure and treatment not carried out for other reasons; I72.3 Aneurysm of iliac artery

== ENCOUNTER 2022-01-18 20:44 | Inpatient (IN) | payer MEDICARE, BC ==
[~2022-01-18] VITALS: Ht 175.3 cm; Wt 68.2 kg
[~2022-01-18 20:44] MED LIST changes: -ANAS1TAB10 PO; +ATOR20TA66 PO; +BUDE0.256 NEB; -BUDE10.22 INH; +CETI10TA14 PO; +COR3.125T PO; -ESCI-8 PO; +FOLI0.8T22 PO; +FURO-150 PO; -GABA-530 PO; +ISOS120T13 PO; -LACT1CAP65 PO; -LOSA100T57 PO; -MAGN400C PO; -METO50TA17 PO; +Magnesium Gluconate PO; +NALO4SPR BOTHNARES; +NITR1PAT TD; +OMEP20CA15 PO; -OMEP40CA21 PO; -RANO10003 PO; +RANO500T6 PO; +SACU1TAB7 PO; +TIOT4MIS3 PO; +TRAM50TA2 PO; -UBID100C45 PO; -VALS80TA2 PO
[2022-01-18] MEDS ORDERED: ondansetron/PF 4mg/2ml inj IV ONE (21:50)
[2022-01-18] MEDS ORDERED: HYDROcodone/acetaminophen 5mg/325mg tablet PO ONE (21:50)
[2022-01-18] MEDS ORDERED: acetaminophen 325mg tablet PO ONE (21:50)
[2022-01-18 22:43] LABS: BASOPHILS % (AUTO) 0.2 % (0-1); EOSINOPHILS # (AUTO) 0.5 X10'3 (0-0.9); EOSINOPHILS % (AUTO) 4.4 % (0-6); HEMATOCRIT 28.1 % (42.0-52.0); HEMOGLOBIN 9.7 g/dl (14.0-17.9); LYMPHOCYTES # (AUTO) 1.2 X10'3 (1.1-4.8); MEAN CORPUSCULAR HEMOGLOBIN 34.9 PG (27.0-31.0); MEAN CORPUSCULAR HGB CONC 34.3 g/dL (33.0-36.5); MEAN CORPUSCULAR VOLUME 101.6 FL (78-98); MEAN PLATELET VOLUME 8.5 FL (7.4-10.4); MONOCYTES # (AUTO) 0.7 X10'3 (0-0.9); MONOCYTES % (AUTO) 6.9 % (2-12); NEUTROPHILS # (AUTO) 7.9 X10'3 (1.8-7.7); NEUTROPHILS % (AUTO) 76.5 % (42-75); PLATELET COUNT 235 X10'3 (140-440); RED BLOOD COUNT 2.77 X10'6 (4.70-6.10); RED CELL DISTRIBUTION WIDTH 13.9 % (11.5-14.5); WHITE BLOOD COUNT 10.3 X10'3 (4.5-11.0)
[2022-01-18 22:49] LABS: ALANINE AMINOTRANSFERASE 21 U/L (12-78); ALBUMIN 3.5 G/DL (3.4-5.0); ALBUMIN/GLOBULIN RATIO 0.9 (1.1-1.5); ALKALINE PHOSPHATASE 61 IU/L (46-116); ANION GAP 12 (8-16); ASPARTATE AMINO TRANSFERASE 23 U/L (10-37); BILIRUBIN,TOTAL 1.5 MG/DL (0.1-1.0); BLOOD UREA NITROGEN 30 MG/DL (7-18); BUN/CREATININE RATIO 19.5 (5.4-32.0); CALCIUM 8.6 MG/DL (8.5-10.1); CHLORIDE 105 MMOL/L (99-107); CREATININE 1.54 MG/DL (0.60-1.10); GLUCOSE 90 MG/DL (70-104); POTASSIUM 3.7 MMOL/L (3.5-5.1); SODIUM 141 MMOL/L (135-145); TOTAL CARBON DIOXIDE 24.5 MMOL/L (24-32); TOTAL PROTEIN 7.3 G/DL (6.4-8.2); eGFR 44 ML/MIN
[2022-01-18] MEDS ORDERED: magnesium 2GM in 50ml NS 50 ML IV PRN (23:30)
[2022-01-18] MEDS ORDERED: magnesium 4gm in 100ml NS 100 ML IV PRN (23:30)
[2022-01-18] MEDS ORDERED: POTASSIUM BICARB 20meq eff tab 20 MEQ TABLET.EFF PO PRN ×2 (23:30)
[2022-01-18] MEDS ORDERED: mag hydrox/Alum hydrox/simeth 30ml oral suspension PO PRN (23:30)
[2022-01-18] MEDS ORDERED: potassium CL 10mEq/100ml bag 100 ML IV PRN (23:30)
[2022-01-18] MEDS ORDERED: acetaminophen 325mg tablet PO PRN ×2 (23:30)
[2022-01-18] MEDS ORDERED: magnesium Cl slow-release 64mg tablet PO PRN (23:30)
[2022-01-18] MEDS ORDERED: HYDROcodone/acetaminophen 10/325mg tab PO PRN (23:30)
[2022-01-18] MEDS ORDERED: ondansetron/PF 4mg/2ml inj IV PRN (23:30)
[2022-01-18] MEDS ORDERED: morphine 2 MG/ML inj. syringe IV PRN (23:30)
[2022-01-18] MEDS ORDERED: magnesium hydroxide 30ml (MOM) UD suspension PO PRN (23:30)
[2022-01-19 00:32] LABS: MAGNESIUM 2.1 MG/DL (1.5-2.4); POTASSIUM 3.8 MMOL/L (3.5-5.1)
[2022-01-19 02:30] VITALS: BP 113/59
--- NOTE | 2022-01-19 04:18 | NUR ---
Paged Dr. Mehta: Pt Gurpreet Dickens room 3020-A re-admitted, this morning, post cath (01/13) for chest pain. I wanted to inform you that this pt has small lump at groin site. Pt denies pain at site. Will relay to day shift. Addendum: 01/19/22 at 0421 by Melissa Hannon RN Spoke to . No new orders.
--- NOTE | 2022-01-19 06:51 | NUR ---
Problems reprioritized. Patient report given, questions answered & plan of care reviewed with DON Cervantes.
[2022-01-19 06:57] LABS: BASOPHILS % (AUTO) 0.2 % (0-1); EOSINOPHILS # (AUTO) 0.4 X10'3 (0-0.9); EOSINOPHILS % (AUTO) 5.1 % (0-6); HEMATOCRIT 24.3 % (42.0-52.0); HEMOGLOBIN 8.3 g/dl (14.0-17.9); LYMPHOCYTES # (AUTO) 0.9 X10'3 (1.1-4.8); LYMPHOCYTES % (AUTO) 12.9 % (21-51); MEAN CORPUSCULAR HEMOGLOBIN 34.4 PG (27.0-31.0); MEAN CORPUSCULAR VOLUME 101.2 FL (78-98); MEAN PLATELET VOLUME 8.4 FL (7.4-10.4); MONOCYTES # (AUTO) 0.7 X10'3 (0-0.9); MONOCYTES % (AUTO) 9.2 % (2-12); NEUTROPHILS # (AUTO) 5.2 X10'3 (1.8-7.7); NEUTROPHILS % (AUTO) 72.6 % (42-75); PLATELET COUNT 198 X10'3 (140-440); RED CELL DISTRIBUTION WIDTH 13.7 % (11.5-14.5); WHITE BLOOD COUNT 7.1 X10'3 (4.5-11.0)
[2022-01-19 07:00] VITALS: BP 130/60
[2022-01-19 07:36] LABS: ALANINE AMINOTRANSFERASE 18 U/L (12-78); ALBUMIN 2.9 G/DL (3.4-5.0); ALBUMIN/GLOBULIN RATIO 0.9 (1.1-1.5); ALKALINE PHOSPHATASE 55 IU/L (46-116); ANION GAP 6 (8-16); ASPARTATE AMINO TRANSFERASE 21 U/L (10-37); BLOOD UREA NITROGEN 30 MG/DL (7-18); BUN/CREATININE RATIO 19.5 (5.4-32.0); CALCIUM 8.3 MG/DL (8.5-10.1); CHLORIDE 109 MMOL/L (99-107); CREATININE 1.54 MG/DL (0.60-1.10); GLUCOSE 96 MG/DL (70-104); MAGNESIUM 2.3 MG/DL (1.5-2.4); POTASSIUM 3.8 MMOL/L (3.5-5.1); SODIUM 139 MMOL/L (135-145); TOTAL CARBON DIOXIDE 23.6 MMOL/L (24-32); TOTAL PROTEIN 6.1 G/DL (6.4-8.2); eGFR 44 ML/MIN
[2022-01-19] MEDS ORDERED: K and/or MAG REPLACEMENT MC SCH (08:00)
[2022-01-19] MEDS ORDERED: enoxaparin 40mg/0.4ml syringe SUBCUT SCH (08:00)
[2022-01-19] MEDS ORDERED: docusate sod 100mg capsule PO SCH (08:00)
[2022-01-19] MEDS: HYDROcodone/acetaminophen 5mg/325mg tablet PO PRN ×2 (10:14→14:04)
[2022-01-19] MEDS ORDERED: COVID-19 VAC, TRIS(PFIZER)/PF 30 MCG/0.3 ML VIAL IMVAC ONE (10:20)
[2022-01-19 11:13] VITALS: BP 105/56
== END 2022-01-19 15:54 | DRG 204 ==
LOC: ER 20:45 → ED HOLD 23:34 → PCU 3S 01-19 02:31
PROVIDERS: ADMIT Internal Medicine; ATTEND Internal Medicine
DX: R07.81 Pleurodynia (principal); G89.29 Other chronic pain; I11.0 Hypertensive heart disease with heart failure; I35.0 Nonrheumatic aortic (valve) stenosis; I50.9 Heart failure, unspecified; E78.5 Hyperlipidemia, unspecified; D64.9 Anemia, unspecified; J44.9 Chronic obstructive pulmonary disease, unspecified; I25.2 Old myocardial infarction; Z86.73 Personal history of transient ischemic attack (TIA), and cerebral infarction without residual deficits; Z87.891 Personal history of nicotine dependence; Z95.1 Presence of aortocoronary bypass graft; Z95.5 Presence of coronary angioplasty implant and graft; Z88.2 Allergy status to sulfonamides; Z88.1 Allergy status to other antibiotic agents; Z91.011 Allergy to milk products; Z87.440 Personal history of urinary (tract) infections; Z80.0 Family history of malignant neoplasm of digestive organs; Z79.899 Other long term (current) drug therapy
CPT/HCPCS: 36415; 71045; 80053; 83735; 83880; 84132; 84145; 84484; 85025; 93005; 99285; A4349; G0378; J1650; J2405